=== PATIENT | male | born 1945 | race Caucasian/White ===

== ENCOUNTER 2019-09-10 22:36 | Inpatient (IN) ==
[2019-09-10] MEDS ORDERED: LASIX IV ONE (22:40)
[2019-09-10] MEDS ORDERED: CARDIZEM IV ONE (22:43)
--- NOTE | 2019-09-10 22:48 | PROVIDER DOCUMENTATION ---
HPI-Respiratory General - General Chief Complaint: Shortness of Breath Stated Complaint: sob Time Seen by Provider: 09/10/19 22:42 Source: patient Allergies/Adverse Reactions: Patient Allergies Allergy/AdvReac Type Severity Reaction Status Date / Time No Known Allergies Allergy Verified 09/10/19 23:10 Home Medications: Home Medication List Medication Instructions Recorded Confirmed Last Taken Type Allopurinol 300 mg PO DAILY 10/25/17 09/10/19 10/24/17 20:00 History Aspirin [Aspirin EC] 81 mg PO DAILY 10/25/17 09/10/19 10/24/17 20:00 History Digoxin 0.25 mg PO DAILY 10/25/17 09/10/19 10/24/17 20:00 History Diltiazem HCl [Cartia Xt] 240 mg PO DAILY 10/25/17 09/10/19 10/24/17 20:00 History Ramipril 10 mg PO DAILY 10/25/17 09/10/19 10/24/17 20:00 History Saxagliptin [Onglyza] 5 mg PO DAILY 10/25/17 09/10/19 10/24/17 20:00 History Triamterene/Hydrochlorothiazid 37.5 mg PO DAILY 10/25/17 09/10/19 10/24/17 20:00 History [Triamterene-Hctz 37.5-25 mg Tb] Warfarin [Coumadin] 5 mg PO DAILY 10/25/17 09/10/19 10/24/17 20:00 History Furosemide 1 tab PO DAILY 09/10/19 09/10/19 Unknown History Potassium Chloride 1 tab PO DAILY 09/10/19 09/10/19 Unknown History - History of Present Illness-Resp Nature of Presenting Problem: 74 yr old M, presenting with progressively worsening SOB over the past several hours; pt had been feeling poorly for the past several days, but over the course of today began to feel short of breath at rest; his reports he had been coughing in the days leading up to this, but tonight; had not coughed at all, and had appeared to have difficulty catching his breath; she also notes that he became profusely diaphoretic; this only worsened, and by the time EMS was called, the pt was saturating 86% on room air; he has no hx of pulmonary issues; does have some cardiac hx, mainly atrial fibrillation. Pt was placed on BiPAP. Review of Systems - Adult - REVIEW OF SYSTEMS - ADULT Constitutional: reports: see HPI Eyes: reports: no symptoms reported Ears, Nose, Mouth & Throat: reports: no symptoms reported Cardiovascular: reports: see HPI Respiratory: reports: see HPI Gastrointestinal: reports: no symptoms reported Genitourinary: reports: no symptoms reported Musculoskeletal: reports: no symptoms reported Integumentary: reports: no symptoms reported Neurological: reports: no symptoms reported Psychiatric: reports: no symptoms reported Past History - Adult - PAST MEDICAL HISTORY-ADULT Review of Records: reports: Nursing Assessment Review Cardiovascular: reports: A-Fib, HTN - PRIOR SURGERIES/PROCEDURES Surgical/Procedure History: reports: other (cath) - FAMILY HISTORY Family History: reviewed, not pertinent - SOCIAL HISTORY Living Situation: family Physical Exam-General - PHYSICAL EXAM-ADULT Initial Vital Signs Reviewed: Yes - CONSTITUTIONAL General Appearance: alert, mild distress - EYES Eyes: PERRL/EOMI - HEAD, EARS, NOSE, MOUTH & THROAT HENMT: normocephalic/atraumatic, moist mucous membranes - RESPIRATORY Respiratory: crackles, wheezing, other (poor inspiratory effort) - CARDIOVASCULAR Cardiovascular: tachycardia, irregularly irregular - GASTROINTESTINAL (ABDOMEN) Abdominal Exam: normal bowel sounds, non tender, soft - MUSCULOSKELETAL Extremity: pedal edema - SKIN Integumentary: normal color, normal turgor, warm/dry - NEUROLOGIC Neurologic: no motor/sensory deficits. negative: facial droop, focal weakness, motor weakness - PSYCHIATRIC Psych/Mental Status: normal mood/affect, oriented x 3 - HEART Score HEART Score: History: Moderately Suspicious HEART Score: ECG: Non-Specific Repolarization Disturbance/LBBB/PM HEART Score: Age: > or = 65 Years HEART Score: Risk Factors for Atherosclerotic Disease: > or = 3 Risk Factors or History of Atherosclerotic Disease HEART Score: Troponin: 1-3x Normal Limit Total HEART Score:: 7 Progress - PLAN OF CARE/RESULTS Progress/Plan/Lab Results: Vital Signs - 8 hr 09/10/19 23:02 Pulse Rate 140 H Respiratory Rate 24 Blood Pressure 92/69 O2 Sat by Pulse Oximetry 97 09/10/19 22:56 Influenza Screen - Final Nasopharyngeal Laboratory Results - last 24 hr 09/10/19 09/10/19 09/10/19 22:49 22:50 22:50 WBC 26.09 H RBC 4.18 L Hgb 13.7 L Hct 42.1 MCV 100.7 H MCH 32.8 H MCHC 32.5 L RDW Std Deviation 14.1 Plt Count 240 MPV 11.0 H Immature Gran % (Auto) 0.5 Neut % (Auto) 85.7 H Lymph % (Auto) 5.2 L Gates % (Auto) 8.3 Eos % (Auto) 0.1 Baso % (Auto) 0.2 Immature Gran # (Auto) 0.14 H Neut # (Auto) 22.33 H Lymph # (Auto) 1.36 Gates # (Auto) 2.17 H Eos # (Auto) 0.03 Baso # (Auto) 0.06 Specimen Type Sample Site pH pCO2 pO2 HCO3 Base Excess Oxyhemoglobin ABG O2 Sat (Calculated) ABG O2 Saturation ABG Carboxyhemoglobin ABG Methemoglobin Wes Test A-a O2 Difference Total Hemoglobin Lactate Blood Gas Modality FiO2 % Inspiratory BiPAP Expiratory BiPAP Sodium 130 L Potassium 4.8 Chloride 90 L Carbon Dioxide 26 Anion Gap 14 BUN 38 H Creatinine 2.0 H Estimated GFR/1.73 m2 33 BUN/Creatinine Ratio 19 Glucose 352 H POC Glucose 351 H Calculated Osmolality 284 Calcium 8.9 Total Bilirubin 0.59 AST 12 ALT 10 Alkaline Phosphatase 70 Creatine Kinase 130 Troponin T High Sens Evk-B-Sjwqjikdela Pept Total Protein 7.3 Albumin 3.5 Globulin 3.8 Albumin/Globulin Ratio 0.9 Plasma Lactate Acetone Level 09/10/19 09/10/19 09/10/19 22:50 22:50 22:50 WBC RBC Hgb Hct MCV MCH MCHC RDW Std Deviation Plt Count MPV Immature Gran % (Auto) Neut % (Auto) Lymph % (Auto) Gates % (Auto) Eos % (Auto) Baso % (Auto) Immature Gran # (Auto) Neut # (Auto) Lymph # (Auto) Gates # (Auto) Eos # (Auto) Baso # (Auto) Specimen Type Sample Site pH pCO2 pO2 HCO3 Base Excess Oxyhemoglobin ABG O2 Sat (Calculated) ABG O2 Saturation ABG Carboxyhemoglobin ABG Methemoglobin Wes Test A-a O2 Difference Total Hemoglobin Lactate Blood Gas Modality FiO2 % Inspiratory BiPAP Expiratory BiPAP Sodium Potassium Chloride Carbon Dioxide Anion Gap BUN Creatinine Estimated GFR/1.73 m2 BUN/Creatinine Ratio Glucose POC Glucose Calculated Osmolality Calcium Total Bilirubin AST ALT Alkaline Phosphatase Creatine Kinase Troponin T High Sens 30 H* Eef-R-Utuxsgtmsjw Pept 392 Total Protein Albumin Globulin Albumin/Globulin Ratio Plasma Lactate Acetone Level NEGATIVE 09/10/19 09/10/19 22:50 23:06 WBC RBC Hgb Hct MCV MCH MCHC RDW Std Deviation Plt Count MPV Immature Gran % (Auto) Neut % (Auto) Lymph % (Auto) Gates % (Auto) Eos % (Auto) Baso % (Auto) Immature Gran # (Auto) Neut # (Auto) Lymph # (Auto) Gates # (Auto) Eos # (Auto) Baso # (Auto) Specimen Type ARTERIAL Sample Site R RADIAL pH 7.25 L pCO2 68 H* pO2 271 H HCO3 25.5 Base Excess 0.7 Oxyhemoglobin 97.3 ABG O2 Sat (Calculated) 19.9 ABG O2 Saturation 100.3 H ABG Carboxyhemoglobin 2.00 ABG Methemoglobin 0.9 Wes Test YES A-a O2 Difference 357.0 Total Hemoglobin 14.1 Lactate 1.60 Blood Gas Modality BI PAP FiO2 % 100.0 Inspiratory BiPAP 16.0 Expiratory BiPAP 5.0 Sodium Potassium Chloride Carbon Dioxide Anion Gap BUN Creatinine Estimated GFR/1.73 m2 BUN/Creatinine Ratio Glucose POC Glucose Calculated Osmolality Calcium Total Bilirubin AST ALT Alkaline Phosphatase Creatine Kinase Troponin T High Sens Jqp-[id number]-Dnvyponkhjd Pept Total Protein Albumin Globulin Albumin/Globulin Ratio Plasma Lactate 2.7 H Acetone Level Orders Category Date Time Status CHEST-1 VIEW [RAD] Stat Exams 09/10/19 23:05 Taken A1C HGB W EST AVG GLUCOSE [CHEM] Routine Lab 09/12/19 06:00 Ordered ABG [RESP] Routine Lab 09/10/19 23:06 Completed ACETONE SERUM [CHEM] Stat Lab 09/10/19 22:50 Completed CBC WITH ELECTRONIC DIFF [HEME] Stat Lab 09/10/19 22:50 Completed CK PROFILE [SP CHEM] Stat Lab 09/10/19 22:50 Completed CMP [COMPREHENSIVE METABOLIC PANEL] [CHEM] Stat Lab 09/10/19 22:50 Completed DIGOXIN [TDM] Stat Lab 09/11/19 00:17 Ordered INFLUENZA SCREEN A/B Stat Lab 09/10/19 22:56 Completed LACTATE, PLASMA [CHEM] Stat Lab 09/10/19 22:50 Completed PRO B-NATRIURETIC PEPTIDE Stat Lab 09/10/19 22:50 Completed PROTIME WITH INR [COAG] DAILY Lab 09/11/19 06:00 Ordered PROTIME WITH INR [COAG] DAILY Lab 09/12/19 06:00 Ordered PROTIME WITH INR [COAG] Stat Lab 09/11/19 00:18 Ordered TROPONIN T HIGH SENSITIVITY Stat Lab 09/10/19 22:50 Completed TSH Stat Lab 09/11/19 00:17 Ordered URINALYSIS W/POSS RFLX CULT [URINALYSIS] Stat Lab 09/10/19 23:34 Uncollected 0.9% Sodium Chloride Inj [Ns] 1,000 ml Med 09/10/19 23:35 Discontinued IV 999 mls/hr Albuterol 2.5MG/Ipratrop 0.5MG [Duoneb (A & A)] Med 09/11/19 00:14 Discontinued 3 ml INH NOW ONE Allopurinol [Zyloprim] Med 09/11/19 09:00 Ordered 300 mg PO DAILY Aspirin Med 09/10/19 23:42 Discontinued 325 mg PO NOW ONE Aspirin EC Med 09/11/19 09:00 Ordered 81 mg PO DAILY Azithromycin 500 mg/Ns [Zithromax 500 mg/Ns] Med 09/11/19 00:15 Active 500 mg in 250 ml IV NOW CefTRIAXONE [Rocephin] 1 gm Med 09/10/19 23:35 Discontinued 0.9% Sodium Chloride Inj [Ns] 50 ml IV NOW Digoxin Med 09/11/19 09:00 Ordered 0.25 mg PO DAILY Diltiazem C.d. [Cardizem Cd] Med 09/11/19 09:00 Ordered 240 mg PO DAILY Diltiazem [Cardizem] Med 09/10/19 22:43 Discontinued 25 mg IV NOW ONE Diltiazem [Cardizem] Med 09/11/19 00:15 Discontinued 30 mg PO NOW ONE Furosemide [Lasix] Med 09/10/19 22:40 Discontinued 40 mg IV NOW ONE Potassium Chloride Med 09/11/19 09:00 Ordered 1 tab PO DAILY Warfarin [Coumadin] Med 09/11/19 09:00 Ordered 5 mg PO DAILY Aerosol Treatments Routine Oth 09/11/19 00:14 Active Aerosol Treatments Stat Oth 09/11/19 00:14 Active BIPAP Stat Oth 09/10/19 23:06 Active EKG [EKG] Stat Ther 09/11/19 00:05 Ordered Pt's lab eval revealed pH 7.25, CO2 of 68 on BiPap, elevated WBC of 25, Na 130, Lactate of 2.7; Dr. Mon kindly accepts the pt for additional management in patient. Pt and family made aware of the plan. Result Diagrams: 09/10/19 22:50 09/10/19 22:50 - XRAY 1 XRAY Study: Chest Impression: See EMR Report XRAY Interpretation: viewed by me; signs of pulm edema, may be underlying pneumonia - CONSULTS/PCP/HOSPITALIST Notification #1 *Consult/PCP/Hospitalist*: Dr. Mon Time Discussed: 00:00 Consult Disposition: Admit Departure - Departure Date of Disposition Decision: 09/10/19 Time of Disposition Decision: 00:00 DIAGNOSIS: Atrial fibrillation with rapid ventricular response Dyspnea Qualifiers: Dyspnea type: acute respiratory distress Qualified Code(s): R06.03 - Acute respiratory distress Pneumonia Qualifiers: Pneumonia type: due to unspecified organism Laterality: bilateral Lung location: lower lobe of lung Qualified Code(s): J18.1 - Lobar pneumonia, unspecified organism Disposition: ADMITTED INPATIENT 09 Certified Medical Emergency: Emergent Condition: Fair Referrals and Follow-Ups: Gris Jenkins MD [Primary Care Provider] - - Critical Care Note This patient required my direct & personal management of CC.: Yes Total Time (mins): 35 Critical Care Statement: This patient required my direct personal management to treat or rule out processes, the absence of which, could potentiallly result in sudden, clinically significant life or limb threatening deterioration. Attestation - Physician/ FAISAL Attestation Patient care was provided by Advanced Practice Provider:: No The physician spent face to face time with patient:: Yes Advanced Practice Provider documentation review:: Supervising physician onsite and consulted in the evaluation and care of this patient. The physician did have a face to face encounter with the patient.
[2019-09-10 23:12] LABS: BASO# 0.06 X1000 (0.0-0.2); BASO% 0.2 % (0.0-0.8); EOS# 0.03 X1000 (0.0-0.7); EOS% 0.1 % (0.0-10.0); HEMATOCRIT 42.1 % (42.0-52.0); HEMOGLOBIN 13.7 g/dL (14.0-18.0); IMM GRAN# 0.14 X1000 (0.0-0.04); IMM GRAN% 0.5 % (0.0-0.5); LYMPH# 1.36 X1000 (1.2-3.4); LYMPH% 5.2 % (20.5-51.1); MCH 32.8 PG (27-31); MCHC 32.5 g/dL (33-37); MCV 100.7 FL (81-99); MONO# 2.17 X1000 (0.11-0.59); MONO% 8.3 % (1.7-9.3); NEUT# 22.33 X1000 (1.4-6.5); NEUT% 85.7 % (42.2-75.2); PLT 240 X1000 (130-400); RBC 4.18 XMIL (4.7-6.1); RDW 14.1 % (11.5-14.5); WBC 26.09 X1000 (4.8-10.8)
[2019-09-10 23:21] LABS: ALB/GLOB RATIO 0.9; ALBUMIN 3.5 g/dL (3.5-5.0); CALCIUM 8.9 mg/dL (8.8-10.2); POTASSIUM 4.8 mmol/L (3.5-5.1); TOTAL BILIRUBIN 0.59 mg/dL (0.20-1.00); TOTAL PROTEIN 7.3 g/dL (6.3-8.3)
[2019-09-10] MEDS ORDERED: NS 1,000 ML IV ONE (23:35)
[2019-09-10] MEDS ORDERED: ROCEPHIN 1 GM in NS 50 ML IV ONE (23:35)
[2019-09-10] MEDS ORDERED: ASPIRIN PO ONE (23:42)
[2019-09-10 23:51] LABS: ALLEN TEST YES; BE 0.7 mmoll (-3.0-3.0); BLOOD TYPE ARTERIAL; HCO3-(ACT) 25.5 mmoll (20.0-26.0); METHB 0.9 % (0.0-1.5); O2(CT) 19.9 mL/dL (15.0-23.0); O2HB 97.3 % (95.0-99.0); PO2(98.6) 271 mmHg (60-100); SAMPLE BLOOD; SAO2 100.3 % (95.0-100.0); THB 14.1 g/dL (11.5-17.4); pH(98.6) 7.25 (7.35-7.45)
[2019-09-10 23:52] LABS: MODALITY BI PAP
[2019-09-10 23:53] LABS: PCO2(98.6) 68 mmHg (35-45)
[2019-09-11] MEDS ORDERED: DUONEB (A & A) INH ONE (00:14)
[2019-09-11] MEDS ORDERED: ZITHROMAX 500 MG/NS 500 MG/250 ML IVPB IV ONE (00:15)
[2019-09-11] MEDS ORDERED: CARDIZEM PO ONE (00:15)
--- NOTE | 2019-09-11 00:21 | ED EKG INTERP ---
This chart was entered by Lay Mendez Scribe, acting as scribe for Kristopher Triplett MD. EKG Interpretation - EKG Time of EKG reading by physician:: 22:43 EKG Read and Signed by:: Kristopher Triplett EKG Interpretation (*Must complete 3 of following elements*): Abnormal Rate: 118 Rhythm: Atrial fibrillation with rapid ventricular response ST Wave: non-specific ST changes (ST & T wave abnormality, consider lateral ischemia) Comments: Septal in farct, age undetermined Attestation - Physician/ FAISAL Attestation Patient care was provided by Advanced Practice Provider:: No The physician spent face to face time with patient:: Yes Advanced Practice Provider documentation review:: Supervising physician onsite and consulted in the evaluation and care of this patient. The physician did have a face to face encounter with the patient. This chart was documented by the indicated scribe, (Lay Mendez Scribe) and accurately reflects the services I performed and decisions made by me, Kristopher Triplett MD, as attested by the provider's signature.
[2019-09-11] MEDS ORDERED: HUMALOG SUBQ ONE (00:29)
[2019-09-11] MEDS ORDERED: LANTUS INSULIN SUBQ ONE (00:29)
[2019-09-11] MEDS ORDERED: NS 500 ML IV ONE (00:31)
[2019-09-11 02:15] LABS: INR 1.94; PROTIME 22.6 Seconds (11.0-16.0)
--- NOTE | 2019-09-11 02:26 | HISTORY AND PHYSICAL ---
PRIMARY CARE PROVIDER: Gris Jenkins MD. REASON FOR ADMISSION: Two to 3 days history of dry cough, chest tightness, and increased shortness of breath. HISTORY OF PRESENT ILLNESS: Mr. Norman Stone is a 74-year-old male with a past medical history of atrial fibrillation status post aortic valve repair. She also has a history of hypertension, type 2 diabetes, gout. He has a longstanding history of chronic dyspnea on exertion, which has worsened over the last couple of days. He also has a chronic history of orthopnea, which he states has not worsened nor has he experienced any PND. He has been coughing for the last 2 days, which is dry, may have increased shortness of breath even at rest. No overt fever or chills, but states a few days prior to the onset of these symptoms was exposed to a daughter who had a "bronchitis." He has chronic lower extremity swelling, but says its has not worsened. No extremity redness or pain. No palpitations. His has been trying to get him to see his family doctor but the patient has steadfastly refused. Today he went to the bathroom to defecate, but could not get off the toilet seat because he was profoundly short of breath, diaphoretic and very weak. He denied any loss of consciousness though his family said during this period he was very confused. They called the EMS and they brought him into the hospital. His heart rate in the hospital was in the 140s, atrial fibrillation with RVR. He was given 25 mg of Cardizem which has since brought his heart rate down to the low 100s. Currently the patient says he feels a little bit better after being put on BiPAP and receiving Cardizem. REVIEW OF SYSTEMS: Notable for urgency, hesitancy and nocturia, which has not worsened. No hematuria. No bleeding from any orifice. No focal neurological complaints. No additional GI complaints. ALLERGIES: None. HOME MEDICATIONS: He is on allopurinol 300 mg daily, aspirin 81 mg a daily, Cardizem 240 mg daily, warfarin 5 mg daily, digoxin 0.25 mg daily, furosemide 40 mg daily, Onglyza 5 mg daily, potassium 10 mEq daily, ramipril 10 mg daily, Dyazide 37.5/25 daily. FAMILY HISTORY: Both parents had heart disease. SOCIAL HISTORY: He uses smokeless tobacco. He drinks a beer daily. Not . No illicit drug use. PAST MEDICAL HISTORY: Includes gout. The rest of past medical history see above. LABORATORY DATA: White count is 26,000, hemoglobin and hematocrit 13 and 42, platelets 240,000 with an MCV of 101, 85% neutrophils. Sodium 130, BUN is 20, creatinine 2.0, glucose 352, troponin is 30, lactate 2.7. PH 7.25, pCO2 of 68, PO2 of 271. Is on FiO2 of 100% on BiPAP 16 and 5 I believe. IMAGING: Chest film reviewed by me shows poor inspiratory effort, but there appears to be a left lower lobe infiltrate with increased vascular markings, and a flu swab was negative. EKG shows atrial fibrillation with RVR with nonspecific ST-wave changes. Heart rate is 118. PHYSICAL EXAMINATION: VITAL SIGNS: Blood pressure is 92/69, respiratory rate is 24, pulse rate was 140. GENERAL: He is an obese elderly white male who is alert and oriented to person and time. Normal mood and affect. HEENT: Head is normocephalic, atraumatic. Eyes, CARLEE, EOMI. He is anicteric not pale. ENT exam is limited due to the fact he is on a BiPAP. He has a BiPAP mask on. He has mild central cyanosis noted. NECK: Supple with noticeable JVD or hepatojugular reflux. No bruit. No thyromegaly. CHEST: Coarse wheezes and crepitations diffusely. Decreased air entry in both lung lin. CARDIOVASCULAR: First and second heart sounds heard. No gallops or rubs. Rhythm is irregular. ABDOMEN: Protuberant, soft, nontender. No organomegaly. Bowel sounds hypoactive. RECTAL: Deferred at this time. EXTREMITIES: The patient has trace to 1+ pitting edema in both lower extremities. Pulses distally have good volume, regular. Extremities are warm to touch. No clubbing or peripheral cyanosis. NEUROLOGICAL: No gross focal deficits. No asterixis or myoclonus. SKIN: Intact with no breakdown, lesion, or erythema. MUSCULOSKELETAL: Grossly normal. ASSESSMENT: 1. Probable left lower lobe pneumonia. 2. Acute CHF, probably acute diastolic heart failure. 3. Atrial fibrillation with RVR. 4. Acute respiratory failure with hypercapnia secondary to #1 and 2. 5. Probable COPD. 6. Gout. 7. Type 2 diabetes uncontrolled. 8. Hypertensive heart and kidney disease. 9. CKD stage 3. PLAN: The patient does not appear to be clinically in sepsis at this point in time. His picture is more consistent with CHF. We will diurese the patient and start the patient on breathing treatments. Heart rate, i.e., atrial fibrillation RVR probably ris elated to hypoxia, and his rate will be managed with Cardizem and digoxin. We will get digoxin level before considering whether to add on any more extra digoxin especially since the patient has compromised renal function. We will monitor renal function closely and hydrate if needed. The patient will be started on antibiotic coverage for community-acquired pneumonia, i.e. Rocephin and Zithromax. My suspicion is that the patient was exposed to a viral illness and this triggered this pneumonia and CHF noted. We will discontinue allopurinol for now since the patient's renal function has been compromised; however, long-term going forward we will need to discontinue Dyazide as this can trigger gout in this patient. Blood sugars will be managed with Lantus and sliding scale, A1c has been ordered also. The patient will need to be evaluated for home O2 and sleep apnea prior to discharge. The patient does have microcytic anemia and workup has been ordered. Protime and INR was not done, this was ordered and will need to be adjusted accordingly. The patient says he has a bioprosthetic valve. I think we will need to maintain because of the risk of a stroke in this patient, may need to maintain at least INR between 2.5 and 3 for now. cc: MD Gris Dietz MD
[2019-09-11] MEDS: DUONEB (A & A) INH SCH ×4 (03:47→21:21)
[2019-09-11 04:46] LABS: ALLEN TEST YES; BE -0.9 mmoll (-3.0-3.0); BLOOD TYPE ARTERIAL; HCO3-(ACT) 24.1 mmoll (20.0-26.0); METHB 1.2 % (0.0-1.5); O2(CT) 16.7 mL/dL (15.0-23.0); O2HB 92.1 % (95.0-99.0); PO2(98.6) 64 mmHg (60-100); SAMPLE BLOOD; SAO2 94.8 % (95.0-100.0); THB 12.9 g/dL (11.5-17.4); pH(98.6) 7.28 (7.35-7.45)
[2019-09-11 04:48] LABS: MODALITY BI PAP; PCO2(98.6) 57 mmHg (35-45)
--- NOTE | 2019-09-11 05:49 | EKG Report ---
Test Performed on : 09/10/2019 10:42:16 PM Test Reason : sob Blood Pressure : / mmHG Vent. Rate : 118 BPM Atrial Rate : 111 BPM P-R Int : 000 ms QRS Dur : 084 ms QT Int : 328 ms P-R-T Axes : 000 000 127 degrees QTc Int : 459 ms Atrial fibrillation. with rapid ventricular response. Septal infarct (cited on or before 22-OCT-2017) ST & T wave abnormality, consider lateral ischemia Abnormal ECG When compared with ECG of 22-OCT-2017 12:33, T wave inversion no longer evident in Inferior leads T wave inversion no longer evident in Anterior leads Unconfirmed Result
[2019-09-11 06:38] LABS: INR 2.36; PROTIME 26.4 Seconds (11.0-16.0)
--- NOTE | 2019-09-11 07:13 | Diag Imaging Result Doc PS360 ---
EXAM: CHEST-1 VIEW 09/10/2019 HISTORY: SOB TECHNIQUE: AP portable at 2318 COMMENT: There is less apparent pleural fluid on the left than on 12/02/2018. There is pleural thickening and scarring in the left lower lung field similar in appearance to the previous study. The right lung is not as well-expanded as on the previous examination and there is some questionable basilar opacity. 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 Questionable right lower lobe atelectasis versus pneumonia. Electronically signed by Miah Urena 09/11/2019 7:11 AM
[2019-09-11] MEDS: HUMALOG SUBQ SCH ×4 (07:37→20:32)
[2019-09-11] MEDS ORDERED: LANOXIN PO SCH (09:00)
[2019-09-11] MEDS ORDERED: ZYLOPRIM PO SCH (09:00)
[2019-09-11] MEDS ORDERED: FLOMAX PO ONE (09:06)
[2019-09-11] MEDS: ROCEPHIN 1 GM in NS 50 ML IV SCH (09:31)
[2019-09-11] MEDS: ASPIRIN EC PO SCH (09:31)
[2019-09-11 09:32] LABS: URINE SOURCE CATH
[2019-09-11] MEDS: LASIX IV SCH (09:32)
[2019-09-11] MEDS: CARDIZEM CD PO SCH (09:32)
[2019-09-11] MEDS: LANTUS INSULIN SUBQ SCH (09:33)
[2019-09-11] MEDS: KLOR-CON PO SCH (09:33)
[2019-09-11 09:34] LABS: BILIRUBIN URINE NEGATIVE (NEGATIVE); BLOOD URINE TRACE (NEGATIVE); COLOR YELLOW; GLUCOSE URINE TRACE mg/dL (NEGATIVE); KETONE URINE NEGATIVE (NEGATIVE); LEUKOCYTES URINE NEGATIVE (NEGATIVE); NITRITE URINE NEGATIVE (NEGATIVE); PH URINE 5.5; PROTEIN URINE 100 mg/dL (NEGATIVE); SP GRAVITY URINE 1.021; TURBIDITY URINE HAZY (CLEAR); UROBILINOGEN URINE 2 mg/dL (NORMAL)
[2019-09-11 09:35] LABS: UR EPITHELIAL CELLS <10 /HPF (<10); URINE BACTERIA NEGATIVE /HPF; URINE RBC <10 /HPF (<10); URINE WBC <10 /HPF (<10)
[2019-09-11] MEDS: LANOXIN PO SCH (09:54)
--- NOTE | 2019-09-11 15:08 | Diag Imaging Result Doc PS360 ---
CHEST-2 VIEWS - 09/11/2019 INDICATION: CHF PNA COMPARISON: 09/10/2019 FINDINGS: Stable cardiomegaly. Stable valve replacement. There is some worsening infiltrate throughout the left lung base. Stable pleural-based opacity on the left. IMPRESSION: Worsening indeterminate infiltrate throughout the left lung base. Electronically signed by Quincy Villa 09/11/2019 3:06 PM
[2019-09-11] MEDS: NS 1,000 ML IV SCH (16:43)
--- NOTE | 2019-09-11 17:44 | PROGRESS NOTE ---
DATE: 09/11/2019 SUBJECTIVE: Mr. Verdugo is a patient of Dr. Gris Boyer. He had a 3-day history of dry cough, chest tightness, increased shortness of breath. This is a 74-year-old white male with a past medical history of atrial fibrillation, status post aortic valve repair, had a history of hypertension, type 2 diabetes mellitus, gout, and a longstanding history of chronic dyspnea on exertion, which has worsened over the last couple of days. Also, had a chronic history of orthopnea which he states has not worsened nor has he experienced any paroxysmal nocturnal dyspnea, but he has been coughing for 2 days, shortness of breath even at rest. Admitted with probable left lower lobe pneumonia and acute congestive heart failure, probably acute diastolic heart failure, underlying atrial fibrillation with rapid ventricular rate. He has some hypercapnia and probable COPD and hypertensive heart with chronic kidney disease stage 3. OBJECTIVE: Vital Signs: His exam, temperature 98.4, remains afebrile, pulse 67, respirations 25, blood pressure 101/44. HEENT: Pupils are equal and round. Lungs: Clear in all lung lin, anterolateral. Cardiovascular: Regular rhythm and rate without murmur or S3. Abdomen: Soft. Skin: Warm and dry. HOSPITAL COURSE/DIAGNOSTIC DATA: Note he had decreased urine output through the night. They did a bladder scan found 300 mL. Put a Villanueva catheter in and he really has not had much urine output at all, so I am going to start him back on some fluids. His chest x-ray shows pleural and parenchymal fibrosis, questionable right lower lobe atelectasis versus pneumonia. Did not see pulmonary venous hypertension, so I am going to start him back on some fluids. His white count was elevated. His electrolytes on presentation, creatinine was 2.0. Looking back, we had an echocardiogram done on 05/04/2017, and it at that time had normal left ventricular function. Ejection fraction 70%. Right ventricle mildly enlarged. Left atrium appeared mildly dilated and aortic valve densely calcified, showed restricted opening, maximal gradient across the valve was 104, and I think he has had valve replacement since that time. Checking his creatinine and looking back, he has had a creatinine back in June 2019 of 1.3. I think he is a little bit dry. We will give him some fluids back gently with normal saline. We did put a Villanueva catheter in. His heart rate appears controlled. cc: Wes Sheikh MD
[2019-09-11] MEDS: FLOMAX PO SCH (20:31)
[2019-09-11] MEDS ORDERED: COUMADIN PO SCH (21:00)
[2019-09-11] MEDS: ZITHROMAX 500 MG/NS 500 MG/250 ML IVPB IV SCH (23:37)
[2019-09-12] MEDS: DUONEB (A & A) INH SCH ×4 (03:39→21:12)
[2019-09-12] MEDS: NS 1,000 ML IV SCH ×3 (04:41→15:53)
[2019-09-12] MEDS: HUMALOG SUBQ SCH ×4 (06:12→20:06)
[2019-09-12 06:52] LABS: INR 3.43; PROTIME 35.6 Seconds (11.0-16.0)
[2019-09-12 07:19] LABS: MAGNESIUM 1.8 mg/dL (1.5-2.7); PHOSPHORUS 5.3 mg/dL (2.7-4.5)
[2019-09-12 07:25] LABS: CALCIUM 7.8 mg/dL (8.8-10.2); CREATININE 4.2 mg/dL (0.7-1.2); POTASSIUM 5.3 mmol/L (3.5-5.1)
[2019-09-12] MEDS: ASPIRIN EC PO SCH (08:28)
[2019-09-12] MEDS: LASIX IV SCH (08:28)
[2019-09-12] MEDS: LANOXIN PO SCH (08:29)
[2019-09-12] MEDS: FLOMAX PO SCH ×2 (08:29→21:19)
[2019-09-12] MEDS: CARDIZEM CD PO SCH (08:29)
[2019-09-12] MEDS: ROCEPHIN 1 GM in NS 50 ML IV SCH (08:29)
[2019-09-12] MEDS: LANTUS INSULIN SUBQ SCH (08:30)
[2019-09-12] MEDS: KLOR-CON PO SCH (09:24)
[2019-09-12] MEDS ORDERED: NS 500 ML IV ONE (13:06)
--- NOTE | 2019-09-12 13:28 | PROGRESS NOTE ---
DATE: 09/12/2019 SUBJECTIVE: Mr. Verdugo is breathing better. He is doing better. His appetite is not much. He does feel like he is trying to have a bowel movement. He is awake. We really found nothing on the bladder and bladder scan so we decided to just take the catheter out. We had put a catheter in yesterday evening. Did not get much output. Nothing on the bladder scan. We took it out again. We tried to put another one in and still no output so we will discontinue the Villanueva catheter. OBJECTIVE: On his examination, temperature 98.5 degrees, pulse 75, respirations 20, blood pressure 119/45. Pupils are equal and round. Lungs are clear in all lung lin. Cardiovascular Examination: Regular rhythm and rate without murmur or S3. Abdomen is soft and nondistended. Skin is warm and dry. Urine output was about 200 mL. His chest x-ray from yesterday, worsening intermediate infiltrate throughout the left lung base. ASSESSMENT AND PLAN: 1. Probable left lower lobe pneumonia. Continue present antibiotics, supplementary oxygen, and bronchodilators. 2. Acute congestive heart failure, pulmonary venous hypertension. Suspect it is diastolic. Looking back at echocardiogram which he had in November of 2018, left ventricular function was excellent with an estimated ejection fraction of 65-70%. Both atria were mildly enlarged. Mitral valve showed some thickening. The pulse wave Doppler of the mitral inflow showed single filling wave consistent with atrial fibrillation and so suspect mainly diastolic dysfunction. Overall, he is better. 3. He does have benign prostatic hypertrophy. We will take out his catheter and we will see. REVIEW OF ORDERS: Looking over his orders, he is on DuoNebs inhalation every 6 hours, aspirin 81 mg a day, Lanoxin 250 mcg p.o. daily, Cardizem 240 mg daily, Lasix 40 mg IV daily, normal saline at 85 mL an hour, ceftriaxone 1 g IV q.24 hours, Flomax 0.4 mg b.i.d., Coumadin 5 mg at bedtime, azithromycin 500 mg IV q.24 hours, and getting sliding scale insulin. REVIEW OF HIS LABORATORY DATA: Sodium 132, potassium 5.3, chloride 97, BUN 54, creatinine 4.2. Note, his creatinine has bumped up from 2.0 so I think we have to increase his fluids, so he is getting fluids now at 85 mL an hour. I am going to give him a 400 mL IV fluid bolus as well and I will go up to 100 mL an hour. cc: Wes Sheikh MD
[2019-09-13] MEDS: NS 1,000 ML IV SCH ×3 (00:30→08:14)
[2019-09-13] MEDS: ZITHROMAX 500 MG/NS 500 MG/250 ML IVPB IV SCH (00:37)
[2019-09-13] MEDS: DUONEB (A & A) INH SCH ×4 (03:26→22:59)
[2019-09-13 06:43] LABS: CALCIUM 7.5 mg/dL (8.8-10.2); CREATININE 3.2 mg/dL (0.7-1.2); POTASSIUM 5.4 mmol/L (3.5-5.1)
[2019-09-13] MEDS: HUMALOG SUBQ SCH ×4 (08:13→21:53)
[2019-09-13] MEDS: LASIX IV SCH (08:14)
[2019-09-13] MEDS: CARDIZEM CD PO SCH (08:15)
[2019-09-13] MEDS: LANOXIN PO SCH (08:15)
[2019-09-13] MEDS: ROCEPHIN 1 GM in NS 50 ML IV SCH (08:15)
[2019-09-13] MEDS: ASPIRIN EC PO SCH (08:15)
[2019-09-13] MEDS: FLOMAX PO SCH ×2 (08:15→20:36)
[2019-09-13] MEDS: LANTUS INSULIN SUBQ SCH (08:16)
[2019-09-13 08:49] LABS: BASO# 0.02 X1000 (0.0-0.2); BASO% 0.1 % (0.0-0.8); EOS# 0.01 X1000 (0.0-0.7); EOS% 0.1 % (0.0-10.0); HEMATOCRIT 33.3 % (42.0-52.0); HEMOGLOBIN 10.2 g/dL (14.0-18.0); IMM GRAN# 0.11 X1000 (0.0-0.04); IMM GRAN% 0.7 % (0.0-0.5); LYMPH# 1.11 X1000 (1.2-3.4); LYMPH% 7.3 % (20.5-51.1); MCH 32.2 PG (27-31); MCHC 30.6 g/dL (33-37); MONO% 9.2 % (1.7-9.3); MPV 10.8 FL (7.4-10.4); NEUT# 12.63 X1000 (1.4-6.5); NEUT% 82.6 % (42.2-75.2); PLT 208 X1000 (130-400); RBC 3.17 XMIL (4.7-6.1); RDW 14.8 % (11.5-14.5); WBC 15.28 X1000 (4.8-10.8)
[2019-09-13 09:10] LABS: INR 3.45; PROTIME 35.8 Seconds (11.0-16.0)
[2019-09-13] MEDS: KLOR-CON PO SCH (09:15)
--- NOTE | 2019-09-13 13:02 | Diag Imaging Result Doc PS360 ---
CHEST-PORTABLE - 09/13/2019 INDICATION: pneumonia COMPARISON: 09/11/2019 FINDINGS: There is a moderate size, worsening left pleural effusion. Stable cardiomegaly and pulmonary vascular congestion. There is worsening interstitial pulmonary edema bilaterally. IMPRESSION: Significant worsening from prior. Electronically signed by Quincy Villa 09/13/2019 1:02 PM
--- NOTE | 2019-09-13 13:06 | PROGRESS NOTE ---
DATE: 09/13/2019 SUBJECTIVE: A 74-year-old who is awake and alert. He is on 35% Ventimask which he is tolerating well as long as he keeps the mask on. States his breathing is doing well. His was there, would like to get him up in a chair. PHYSICAL EXAMINATION: Vital signs: Today remains afebrile, temperature 98.3 degrees, pulse 96, respirations 20, blood pressure 149/64. HEENT: Pupils are equal and round. Lungs: Clear in all lung lin. Cardiovascular: Regular rhythm and rate without murmur or S3. Abdomen: Soft. Skin: Warm and dry. Urine output: 5400 mL. ASSESSMENT AND PLAN: 1. Probable left lower lobe pneumonia and continue present antibiotics, supplementary O2, bronchodilators. Seems to be making clinical improvement. 2. Acute congestive heart failure, pulmonary venous hypertension, suspect diastolic dysfunction. Looking back at his echocardiogram, he has good systolic function and evidence of diastolic dysfunction. 3. Benign prostatic hypertrophy. 4. He appears to have prerenal azotemia. His creatinine has come down with volume from 4 to 3.2, which is encouraging. Sodium 132, potassium 5.4, chloride 100, BUN 63, creatinine 3.2, so we will try and get him up and get him in a chair. 5. Diabetes mellitus type 2. His sugars appear well controlled. 6. He has no catheter in. I have him on high-dose Flomax at this point, 0.4 mg b.i.d. His Coumadin is at 5 mg and his ProTime is 35. I will decrease his Coumadin down to 4 mg at bedtime. cc: Wes Sheikh MD
[2019-09-14] MEDS: ZITHROMAX 500 MG/NS 500 MG/250 ML IVPB IV SCH (00:14)
[2019-09-14] MEDS: NS 1,000 ML IV SCH ×3 (00:15→12:27)
[2019-09-14] MEDS: DUONEB (A & A) INH SCH ×4 (04:05→22:07)
[2019-09-14] MEDS: HUMALOG SUBQ SCH ×4 (06:39→20:13)
[2019-09-14 06:54] LABS: INR 3.65; PROTIME 37.5 Seconds (11.0-16.0)
[2019-09-14 07:20] LABS: CALCIUM 8.2 mg/dL (8.8-10.2); CREATININE 2.1 mg/dL (0.7-1.2); POTASSIUM 5.6 mmol/L (3.5-5.1)
[2019-09-14] MEDS: ASPIRIN EC PO SCH (09:38)
[2019-09-14] MEDS: ROCEPHIN 1 GM in NS 50 ML IV SCH (09:38)
[2019-09-14] MEDS: LASIX IV SCH (09:38)
[2019-09-14] MEDS: CARDIZEM CD PO SCH (09:38)
[2019-09-14] MEDS: LANOXIN PO SCH (09:38)
[2019-09-14] MEDS: FLOMAX PO SCH ×2 (09:38→20:13)
[2019-09-14] MEDS: LANTUS INSULIN SUBQ SCH (09:38)
[2019-09-14] MEDS: KLOR-CON PO SCH (09:41)
[2019-09-14] MEDS ORDERED: LASIX IV ONE ×2 (12:57→23:28)
--- NOTE | 2019-09-14 13:08 | PROVIDER PROGRESS NOTE ---
Progress Note Pulmonary: Full dictation to follow. Reviewed EMR, H&P, labs and images, meds. Examined. Discussed with Dr. Sheikh and RN, Rosalina. Respiratory failure is compensated with Bipap CHF Pneumonia Improving ARF AV repair on anticoagulation Afib P DC IVF Diuresis check ABG and Probnp Continue antibiotics and current RX. Evaluation time 38 minute
--- NOTE | 2019-09-14 14:57 | PROVIDER PROGRESS NOTE ---
Progress Note Patient has been seen and examined. A full dictation to follow.
--- NOTE | 2019-09-14 16:40 | PROGRESS NOTE ---
DATE: 09/14/2019 SUBJECTIVE: Mr. Verdugo still feels pretty weak. The family is concerned that he has some confusion at times. His stools are loose. They would like to get a electronic drafter, a automotive production worker, and collection coordinator involved. I think his renal function is improving. Chest x-ray did show significant worsening. There is moderate sized worsening left pleural effusion. Stable cardiomegaly and pulmonary vascular congestion, worsening interstitial pulmonary edema, bilateral. OBJECTIVE: General: The patient was sitting up. He is talking and answering questions. Vital Signs: Temperature 97.6 degrees, pulse 89, respirations 20, blood pressure 131/53. HEENT: Pupils are equal and round. Lungs: Clear in all lung lin. Cardiovascular: Regular rhythm rate without murmur or S3. LABORATORY DATA: Urine output 4900 mL. ASSESSMENT AND PLAN: Respiratory failure, compensated with BiPAP, congestive heart failure, pneumonia, improving acute renal failure, arteriovenous repair on anticoagulation, and history of atrial fibrillation. Continue present orders. I will turn down his fluid and trying to avoid putting another Villanueva catheter in. He is on digoxin 250 mcg p.o. daily, Cardizem CD 240 mg a day, insulin glargine 15 units subcutaneous daily, ceftriaxone 1 g q.24 hours, Flomax 0.4 mg b.i.d., azithromycin 500 mg IV q.24 hours. Lasix 100 mg IV,got 1 dose this afternoon. Pro time was 37. We are holding the Coumadin, and he is not getting Coumadin right now. Blood sugars 207, 269, 232. cc: Wes Sheikh MD
[2019-09-14 21:50] LABS: HEMATOCRIT 20.9 % (42.0-52.0); HEMOGLOBIN 6.5 g/dL (14.0-18.0)
[2019-09-15] MEDS ORDERED: NS 500 ML ONE (00:27)
[2019-09-15] MEDS: ZITHROMAX 500 MG/NS 500 MG/250 ML IVPB IV SCH (00:52)
--- NOTE | 2019-09-15 01:43 | CONSULTATION ---
DATE OF CONSULTATION: 09/14/2019 REQUESTING PROVIDER: Dr. Wes Sheikh. REASON FOR CONSULTATION: Acute respiratory failure. HISTORY OF PRESENT ILLNESS: This is a 74-year-old male with a medical history of pulmonary hypertension, atrial fibrillation, severe aortic stenosis, hypertension, diabetes mellitus type 2, gout, benign prostatic hyperplasia, chronic kidney disease and unspecified sleep apnea. He has been admitted since 09/12/2019 with probable left lower lobe pneumonia, acute diastolic congestive heart failure, acute respiratory failure with hypercapnia. Initial chest x- ray also showed pleural and parenchymal fibrosis on the left. He has received 1 dose of azithromycin and continuous Rocephin since admission. However, chest x-ray continually showed significant worsening with moderate-sized left pleural effusion and interstitial pulmonary edema bilaterally with stable cardiomegaly and pulmonary vascular congestion. The patient also developed fever up to 100.7 yesterday. The patient currently is lying in bed with BiPAP mask on with FiO2 at 70%. His oxygen saturation stayed in low 90s. He appears lethargic with his eyes closed and nonresponsive to verbal stimuli. The patient's daughter and at the bedside. They reported the patient has been sick for a long time but refused to go see doctor. They report the patient has chronic dry cough with audible rattle noise during expiration at times and worsening shortness of breath with activities. Family also report patient does complained of chills at times, but no fever has been noted. The patient has a poor appetite recently due to sickness. He does have constipation at times. Family also reports patient usually drinks fluid a lot with unknown reason. He does have diabetes, but he refused to check blood sugar at home. The patient had witnessed snoring a long time ago, which has been improved for several years. PAST MEDICAL HISTORY: 1. Small pulmonary hypertension, moderate to severe per cardiac catheterization on 10/25/2017. 2. Atrial fibrillation, on chronic Coumadin. 3. Severe aortic stenosis status post aortic wall repair in October 2017. 4. Hypertension. 5. Diabetes mellitus type 2. 6. Gout. 7. Benign prostatic hyperplasia diagnosed by Dr. Mims, but the patient did not follow up with Dr. Mims. 8. Chronic kidney disease stage 3. 9. Unspecified sleep apnea. SOCIAL HISTORY: The patient uses Snuff tobacco all his life. He drinks beer occasionally. He is and lives at home with his family. He has no illicit drug use. FAMILY HISTORY: Positive for heart disease. ALLERGIES: No known drug allergies. REVIEW OF SYSTEMS: Unable to be obtained. PHYSICAL EXAMINATION: Vital Signs: Temperature 98.5 degrees, blood pressure 131/53, pulse 89, respiratory rate 20, oxygen saturation 99% on BiPAP with FiO2 of 70%. General: Chronically ill- appearing, lying in bed with a BiPAP mask on. No acute distress noted. HEENT: Atraumatic, normocephalic. Trachea midline. Mucosa pink and slightly dry as patient with mouth open. He appears to be a mouth breather. Respiratory: Even and unlabored. Symmetrical excursion. Auscultation revealed diminished breathing sounds bilaterally with some mild inspiratory crackles on the right lower lobe and the left lower lobe. Cardiovascular: Irregularly irregular with S1 and S2 noted. Gastrointestinal: Protuberant, soft, nontender. Normoactive bowel sounds in all 4 quadrants. Extremities: Bilateral lower extremity trace to 1+ up to the thigh area. Dorsalis pedis diminished bilaterally. No clubbing, no cyanosis. Neurologic: Lethargic. Able to follow simple commands at times, but not answering any questions. LAB DATA: PT 37.5, INR 3.65. Sodium 138, potassium 5.6, chloride 107, carbon dioxide 23, BUN 97, creatinine 2.1. Glucose 207, calcium 8.2. ProBNP 1482. IMAGING DATA: Chest x-ray on 09/13/2019 showed a moderate-size worsening left pleural effusion, stable cardiomegaly and pulmonary vascular congestion with worsening interstitial pulmonary edema bilaterally. ASSESSMENT: This is a 74-year-old male with a medical history of moderate to severe pulmonary hypertension, atrial fibrillation on chronic Coumadin, severe aortic stenosis, hypertension, diabetes mellitus type 2, gout, benign prostatic hyperplasia, chronic kidney disease stage 3, and unspecified sleep apnea. He has been admitted since 09/12/2019 with probable left lower lobe pneumonia, acute congestive heart failure, acute respiratory failure with hypercapnia. 1. Acute hypoxic hypercapnic respiratory failure. 2. Moderate left lower pleural effusion with pulmonary edema bilaterally. 3. Acute on chronic congestive heart failure. 4. Pneumonia. 5. Acute on chronic kidney disease, improving. 6. Atrial fibrillation. 7. Severe aortic stenosis status post aortic valve repair. PLAN: 1. Continue supplemental oxygen. Continue BiPAP as needed. 2. Discontinue IV fluid. Continue diuresis. 3. Continue antibiotic and bronchodilators. 4. Follow up with ABG, BMP, proBNP ABG and chest x-ray. 5. Further recommendations pending hospital course. Thank you for the courtesy of this consult. Dictated by STEW Saba for Radha Jimenez MD cc: STEW Saba MD [facility]
[2019-09-15] MEDS: DUONEB (A & A) INH SCH ×4 (03:25→21:44)
[2019-09-15 04:58] LABS: ALLEN TEST YES; BE 1.8 mmoll (-3.0-3.0); BLOOD TYPE ARTERIAL; HCO3-(ACT) 26.4 mmoll (20.0-26.0); METHB 0.9 % (0.0-1.5); O2(CT) 10.4 mL/dL (15.0-23.0); PCO2(98.6) 46 mmHg (35-45); PO2(98.6) 181 mmHg (60-100); SAMPLE BLOOD; SAO2 99.6 % (95.0-100.0); THB 7.3 g/dL (11.5-17.4); pH(98.6) 7.38 (7.35-7.45)
[2019-09-15 04:59] LABS: MODALITY BI PAP
[2019-09-15] MEDS: HUMALOG SUBQ SCH ×4 (06:05→21:55)
[2019-09-15 06:14] LABS: INR 4.08
--- NOTE | 2019-09-15 06:20 | Diag Imaging Result Doc PS360 ---
EXAM: CHEST-PORTABLE HISTORY: pulmonary venous HTN TECHNIQUE: Single view COMPARISON: 09/13/2019 FINDINGS: The infiltrates and atelectasis in the left base are less pronounced on the current study. There is a small left pleural effusion. No cardiomegaly. Mild pulmonary edema remains. IMPRESSION: Interval worsening Electronically signed by Shravan Falcon 09/15/2019 6:17 AM
[2019-09-15 06:46] LABS: PROTIME 40.9 Seconds (11.0-16.0)
[2019-09-15 06:53] LABS: CALCIUM 7.6 mg/dL (8.8-10.2); CREATININE 1.5 mg/dL (0.7-1.2); POTASSIUM 5.4 mmol/L (3.5-5.1)
[2019-09-15 09:00] LABS: HEMATOCRIT 24.4 % (42.0-52.0); HEMOGLOBIN 7.6 g/dL (14.0-18.0); MCH 30.8 PG (27-31); MCHC 31.1 g/dL (33-37); MCV 98.8 FL (81-99); MPV 11.3 FL (7.4-10.4); RBC 2.47 XMIL (4.7-6.1); RDW 16.9 % (11.5-14.5); WBC 12.65 X1000 (4.8-10.8)
[2019-09-15] MEDS: CARDIZEM CD PO SCH (09:30)
[2019-09-15] MEDS: FLOMAX PO SCH ×2 (09:30→21:55)
[2019-09-15] MEDS: LANOXIN PO SCH (09:31)
[2019-09-15] MEDS: KLOR-CON PO SCH (09:31)
[2019-09-15] MEDS: ROCEPHIN 1 GM in NS 50 ML IV SCH (09:32)
[2019-09-15] MEDS: LASIX IV SCH (09:32)
[2019-09-15] MEDS: LANTUS INSULIN SUBQ SCH (09:33)
[2019-09-15] MEDS ORDERED: VITAMIN K 10 MG in NS 50 ML IV ONE (12:17)
[2019-09-15 12:50] LABS: HEMATOCRIT 21.1 % (42.0-52.0); HEMOGLOBIN 6.6 g/dL (14.0-18.0)
[2019-09-15] MEDS ORDERED: NS 500 ML IV SCH ×2 (13:45→13:47)
[2019-09-15] MEDS ORDERED: PROTONIX 80 MG in NS 80 ML IV ONE (13:49)
[2019-09-15] MEDS: PROTONIX 80 MG in NS 80 ML IV SCH (15:30)
--- NOTE | 2019-09-15 17:01 | PROGRESS NOTE ---
DATE: 09/15/2019 SUBJECTIVE: Mr. Verdugo is breathing better. He seems a little stronger. He did have some dark stools and his hematocrit and hemoglobin dropped, and GI was consulted. We are going to try and get his ProTime down with fresh frozen and some vitamin K. OBJECTIVE: Temperature 97.6 degrees, pulse 104, respirations 24, blood pressure 116/48. Pupils are equal and round. Lungs: Clear in all lung lin. Cardiovascular: Regular rhythm and rate without murmur or S3. Abdomen: Soft. Skin: Warm and dry. LABORATORY AND DIAGNOSTIC DATA: Urine output is 2400 mL. Chest x-ray: Interval worsening. Infiltrates and atelectasis in left base, less pronounced on the current study. There is small left pleural effusion. No cardiomegaly. Mild pulmonary edema remains. ASSESSMENT AND PLAN: 1. Acute on hypoxic hypercapnic respiratory failure. 2. Moderate left lower lobe pleural effusion, pulmonary edema bilaterally. 3. Acute on chronic congestive heart failure. 4. Pneumonia. 5. Acute on chronic kidney disease, which is improving. 6. Atrial fibrillation, rate controlled. 7. Severe aortic stenosis, status post aortic valve repair. 8. Melena, upper gastrointestinal blood loss. We are going to try and get his ProTime down with some fresh frozen and vitamin K. Possibly will need an EGD. cc: Wes Sheikh MD
--- NOTE | 2019-09-15 19:31 | GASTROENTEROLOGY CONSULTATION ---
DATE: 09/15/2019 REASON FOR CONSULTATION: Upper GI bleed. HISTORY OF PRESENT ILLNESS: Mr. Verdugo is a 74-year-old, male, who has a past history of atrial fibrillation, status post aortic valve repair, hypertension, type 2 diabetes, gout, and history of chronic dyspnea on exertion. The patient mentioned that he was brought to the hospital because his breathing had worsened. He has been in the hospital since 09/10. He had cough the previous 2 days, with increased shortness of breath even while he was resting. He was sweating, weak, had periods of confusion without loss of consciousness. This happened when we went to the bathroom. He denied any fever, chills. The patient mentioned having edema in the lower extremity. His heart rate in the hospital was running in the 140s. He had atrial fibrillation with RVR. He was given Cardizem to bring his heart rate down. The patient is currently in the ICU. His hemoglobin on admission was 13.7 and hematocrit was 22.1. Today, his hemoglobin is 6.6, hematocrit 21.1. The patient is on Coumadin and aspirin. His PT was 22.6 and INR was 1.9 and today it is 40.9 and INR is 4.08. His chest x-ray on 09/10/2019, showed pleural and parenchymal fibrosis on the left, questionable right lower lobe atelectasis versus pneumonia. Chest x-ray on 09/11/2019, showed worsening indeterminate infiltrate throughout the lung bases. Chest x-ray on 09/13/2019, showed significant worsening from the prior chest x-ray. Today, it shows interval worsening. PAST MEDICAL HISTORY: Atrial fibrillation, status post aortic valve repair, hypertension, diabetes type 2, gout, dyspnea on exertion, benign prostatic hyperplasia, chronic kidney disease, and sleep apnea. ALLERGIES: No known drug allergies. SURGICAL HISTORY: Aortic valve repair. FAMILY HISTORY: Significant for heart disease. SOCIAL HISTORY: The patient is . He has been having tobacco all his life. Drinks beer occasionally. Denied any illicit drug use. HOME MEDICATIONS: Triamterene/hydrochlorothiazide 37.5/25 mg p.o. daily, allopurinol 300 mg p.o. daily, Onglyza 5 mg p.o. daily, diltiazem HCL 240 mg p.o. daily, digoxin 0.25 mg p.o. daily, aspirin 81 mg p.o. daily, ramipril 10 mg p.o. daily, warfarin 5 mg p.o. daily, furosemide 40 mg p.o. daily, potassium chloride 10 mEq p.o. daily. REVIEW OF SYSTEMS: As per HPI. Otherwise, a 12-point review of systems is negative. PHYSICAL EXAMINATION: vital signs: Temperature 98.7, pulse 90, respirations 20, blood pressure 133/56, oxygen saturation 100% on 5 L nasal cannula. The patient's weight is 181 pounds. BMI is 33.5 kg/m2. General: Alert, oriented x2. Answering questions appropriately and in no acute distress. HEENT: Pale conjunctivae. No icterus. PERRL. Neck: Supple. Lungs: Wheezing heard in the anterior lin. Cardiovascular: Regular rate and rhythm. Abdomen: Soft, obese, nontender. Active bowel sounds heard in all 4 quadrants. Extremities: No clubbing, no cyanosis. Generalized edema in the lower extremities. Pedal pulses 1+ present bilaterally. Neurological: Alert, oriented x3. Nonfocal. Cranial nerves 2-12 grossly intact. LABORATORY AND DIAGNOSTIC DATA: WBC is 12.65, RBC is 2.47, hemoglobin is 6.6, hematocrit is 21.1, platelet count is 175,000. PT is 40.9, INR is 4.08. Sodium 145, potassium 5.4, chloride is 111, carbon dioxide is 25, anion gap is 9, BUN is 125, creatinine is 1.5, glucose is 301, calcium 7.6. ProBNP is 963. Chest x-ray today, showed interval worsening. IMPRESSION AND PLAN: - GI bleed - Acute blood loss anemia - Pneumonia - AFIB - Coagulopathy - CKD - COPD PLAN: Mr. Verdugo is a 74-year-old, male, with a history of atrial fibrillation, status post aortic valve repair. GI has been consulted for his GI bleed and anemia. We had planned to do his EGD tomorrow, but the patient's PT and INR is extremely elevated. His PT today is 40.9 and INR 4.08. The patient's hemoglobin and hematocrit is 6.6 and 21.1. He will be receiving 2 units of fresh frozen plasma and has received 2 units of blood. We have also ordered Protonix 80 mg IV drip. The patient is receiving antibiotics Rocephin and Zithromax for his pneumonia. The plan is to do his EGD on Wednesday. We discussed the risks, benefits, and alternatives of the procedure with the patient. We will also monitor his hemoglobin and hematocrit, PT and INR. We will continue to monitor the patient and follow the plan of care per PCP. This plan was discussed with Dr. Cam. Thank you for your consult. Please call us for any further questions or concerns. Dictated by STEW Huggins for Jose D Cam MD Physician Attestation I have seen and examined the patient. I have discussed and reviewed the note by Cha MATHIAS and agree with findings and plan as documented. In brief, Mr. Verdugo is a 74 year old woman with COPD, CKD, AFIB s/p AVR on coumadin and aspirin who presented with UGIB. Reverse INR. Transfuse for goal hgb 7-8, PPI IV BID. Will plan EGD. MTDD
--- NOTE | 2019-09-15 20:45 | PULMONOLOGY PROGRESS NOTE ---
DATE: 09/15/2019 SUBJECTIVE: Mr. Verdugo is sitting up in the bed. He states that he feels better today. He states that he is breathing better, and he thinks he is hungry. OBJECTIVE: Vital Signs: Blood pressure is 135/70 with a heart rate of 101. Respirations are 18. Temperature is 97.6 oral with O2 saturations that are 96% to 100% on a Venturi mask. Cardiovascular: He has an irregularly irregular rate and rhythm. S1 and S2 appreciated. He has bilateral upper extremity edema with trace pretibial edema to lower extremities. Calves are nontender bilaterally. Pulmonary: Breath sounds with expiratory wheezes noted. Chest rises and falls symmetrically with respiration. Chest wall is nontender to palpation. Gastrointestinal: Abdomen is soft, nontender, nondistended with bowel sounds in all 4 quadrants. Neurologic: He is alert and oriented. Skin: Warm and dry. LABS: WBCs 12.6 with hemoglobin 7.6, hematocrit 24.4, platelets 175. INR is 4.0. Sodium 145, potassium 5.4, BUN 25, creatinine 1.5, with a glucose ranging from 300 to 330. ABGs: PH is 7.38 with a pCO2 of 46, pO2 of 181, and bicarb of 26.4. This was on BiPAP. The patient is currently on a Venturi mask at 40% with saturations of 100%. ASSESSMENT AND PLAN: 1. Respiratory failure with hypercapnia, improving. continue supplemental oxygen. Bipap at night and prn. 2. Acute congestive heart failure. IV diuresis. 3. Left lower lobe pneumonia. incentive spirometer as well as DuoNeb treatments, antibiotics - Rocephin and Zithromax. 4. Acute kidney injury in the setting of chronic kidney disease, improving. 5. Atrial fibrillation, anticoagulation on hold 6. Diabetes mellitus type 2. Pattern blood glucoses with sliding-scale insulin as per primary team. The plan was discussed with Dr. Briones. Dictated by STEW Henry for Malcom Briones MD The clinical exam was performed by STEW Nava. I have reviewed and agree with the assessment and plan. Malcom Briones M.D. cc: STEW Henry MD [facility]
[2019-09-16] MEDS: ZITHROMAX 500 MG/NS 500 MG/250 ML IVPB IV SCH (00:45)
[2019-09-16] MEDS: DUONEB (A & A) INH SCH ×4 (03:40→21:10)
[2019-09-16 05:00] LABS: ALLEN TEST YES; BE 5.8 mmoll (-3.0-3.0); BLOOD TYPE ARTERIAL; HCO3-(ACT) 29.4 mmoll (20.0-26.0); O2(CT) 11.6 mL/dL (15.0-23.0); O2HB 94.8 % (95.0-99.0); PO2(98.6) 163 mmHg (60-100); SAMPLE BLOOD; SAO2 99.8 % (95.0-100.0); THB 8.4 g/dL (11.5-17.4); pH(98.6) 7.33 (7.35-7.45)
[2019-09-16 05:05] LABS: MODALITY VENTILATOR; PCO2(98.6) 62 mmHg (35-45)
[2019-09-16] MEDS: HUMALOG SUBQ SCH ×5 (06:22→20:39)
--- NOTE | 2019-09-16 07:17 | Diag Imaging Result Doc PS360 ---
EXAM: CHEST-PORTABLE 09/16/2019 HISTORY: hypoxemic resp failure TECHNIQUE: AP portable at 0553 COMMENT: There is blunting of the left costophrenic angle. There is pleural thickening versus loculated effusion on the left. There are coarse and platelike opacities in the left lower lobe and lingula. The heart size and pulmonary vascularity are within normal limits. Compared to the previous study the opacity in the left base medially has improved. IMPRESSION: Chronic pleural changes on the left. Improved bibasilar atelectasis versus pneumonia. Electronically signed by Miah Urena 09/16/2019 7:14 AM
[2019-09-16 07:37] LABS: BASO# 0.07 X1000 (0.0-0.2); BASO% 0.5 % (0.0-0.8); HEMATOCRIT 23.2 % (42.0-52.0); HEMOGLOBIN 7.5 g/dL (14.0-18.0); IMM GRAN# 0.49 X1000 (0.0-0.04); IMM GRAN% 3.4 % (0.0-0.5); INR 1.23; LYMPH# 1.69 X1000 (1.2-3.4); LYMPH% 11.8 % (20.5-51.1); MCH 29.9 PG (27-31); MCHC 32.3 g/dL (33-37); MCV 92.4 FL (81-99); MONO% 11.8 % (1.7-9.3); MPV 11.6 FL (7.4-10.4); NEUT# 10.42 X1000 (1.4-6.5); NEUT% 72.5 % (42.2-75.2); PLT 162 X1000 (130-400); PROTIME 15.7 Seconds (11.0-16.0); RBC 2.51 XMIL (4.7-6.1); RDW 18.9 % (11.5-14.5); WBC 14.37 X1000 (4.8-10.8)
[2019-09-16 08:38] LABS: BANDS 2 % (0-1); LYMPHS 10 % (21-51); MONO 14 % (1-9); SEGS 72 % (42-75)
[2019-09-16 08:42] LABS: ALB/GLOB RATIO 0.9; ALBUMIN 2.3 g/dL (3.5-5.0); CALCIUM 8.4 mg/dL (8.8-10.2); CREATININE 1.3 mg/dL (0.7-1.2); POTASSIUM 5.4 mmol/L (3.5-5.1); TOTAL BILIRUBIN 0.28 mg/dL (0.20-1.00)
[2019-09-16] MEDS: CARDIZEM CD PO SCH (09:34)
[2019-09-16] MEDS: LANOXIN PO SCH (09:34)
[2019-09-16] MEDS: LASIX IV SCH (09:35)
[2019-09-16] MEDS: FLOMAX PO SCH ×2 (09:35→20:39)
[2019-09-16] MEDS: LANTUS INSULIN SUBQ SCH (09:40)
[2019-09-16] MEDS: ROCEPHIN 1 GM in NS 50 ML IV SCH (09:40)
[2019-09-16] MEDS: KLOR-CON PO SCH (09:40)
[2019-09-16] MEDS: PROTONIX 80 MG in NS 80 ML IV SCH ×3 (09:41)
[2019-09-16] MEDS ORDERED: D5W 1,000 ML IV SCH (13:00)
[2019-09-16] MEDS: PROTONIX IV SCH (14:23)
[2019-09-16 14:30] LABS: BASO# 0.05 X1000 (0.0-0.2); BASO% 0.3 % (0.0-0.8); EOS# 0.04 X1000 (0.0-0.7); EOS% 0.3 % (0.0-10.0); HEMATOCRIT 22.2 % (42.0-52.0); HEMOGLOBIN 7.1 g/dL (14.0-18.0); IMM GRAN# 0.65 X1000 (0.0-0.04); IMM GRAN% 4.2 % (0.0-0.5); LYMPH% 12.3 % (20.5-51.1); MCH 30.1 PG (27-31); MCV 94.1 FL (81-99); MONO# 1.68 X1000 (0.11-0.59); MONO% 10.9 % (1.7-9.3); MPV 10.6 FL (7.4-10.4); PLT 150 X1000 (130-400); RBC 2.36 XMIL (4.7-6.1); RDW 18.9 % (11.5-14.5); WBC 15.42 X1000 (4.8-10.8)
[2019-09-16 14:53] LABS: ANISOCYTOSIS 2+; BANDS 1 % (0-1); LYMPHS 16 % (21-51); MONO 5 % (1-9); NRBC 2 % (0-0); SEGS 77 % (42-75)
[2019-09-16 14:54] LABS: LARGE PLATELETS 1+
[2019-09-16] MEDS ORDERED: NS 500 ML IV SCH (15:30)
--- NOTE | 2019-09-16 15:49 | PULMONOLOGY PROGRESS NOTE ---
DATE: 09/16/2019 SUBJECTIVE: The patient states that he feels much better today. He is sitting up in the bed with nasal cannula on. He denies any shortness of breath. He is hungry and asking for food. OBJECTIVE: Vital Signs: Blood pressure is 157/55 with a heart rate of 93, respirations are 20, temperature is 98.3 degrees with O2 saturations 100% on nasal cannula. PHYSICAL EXAMINATION: General: This is a 74-year-old gentleman who is sitting up on the bed in the ICU in no distress. Eyes: Pupils are equal, round, react to light. EOMs are intact. Sclerae are anicteric. HEENT: Head is normocephalic, atraumatic. Mucous membranes are moist. Neck: Supple with trachea midline. Cardiovascular: Irregular irregular rate and rhythm. S1 and S2 appreciated. He has upper and lower generalized pitting edema that is 1 to 2+. Pulmonary: Breath sounds are coarse. He does have rhonchi that partially clear to cough. Chest rises and falls symmetric with respiration. Gastrointestinal: Abdomen is soft, nontender, nondistended with bowel sounds in all 4 quadrants. Neurologic: He is alert and oriented. Skin: Warm and dry. LABS: WBC is 14.3, with hemoglobin 7.5, hematocrit 23.2, and platelets of 162,000. Sodium 151, potassium 5.4, BUN 112, creatinine 1.3 with glucose of 267. ABGs, pH is 7.33 with a pCO2 of 62, PO2 of 163, and bicarb of 29.4. This is on BiPAP at 40%, 18/8. ASSESSMENT: 1. Acute hypoxic hypercapnic respiratory failure. 2. Pleural thickening versus a loculated effusion on the left. stable 3. Acute on chronic congestive heart failure with an ejection fraction of 65 to 70 percent in November 2018. 4. Left lower lobe pneumonia. 5. Acute kidney injury in the setting of chronic kidney disease. This is improving. 6. Diabetes mellitus type 2. 7. Melena, GI bleed. This is currently being followed by Dr. Cam in Gastroenterology. 8. Hypernatremia - D5w PLAN: continue cycling BiPAP at night, supplementing oxygen through the day Continue bronchodilators, steroids, incentive spirometer. holding anticoagulation while GI workup is in progress. Pattern blood glucose with sliding scale insulin as per primary team. The plan was discussed with Dr. Briones. Dictated by STEW Henry for Malcom Briones MD Clinical exam was performed by STEW Nava. I agree with the assessment and plan as outlined above. Malcom Briones M.D. cc: STEW Henry MD [facility]
--- NOTE | 2019-09-16 17:24 | PROGRESS NOTE ---
DATE: 09/16/2019 SUBJECTIVE: Mr. Verdugo feels better today. His breathing is a little more comfortable. No nausea. OBJECTIVE: Vital signs: Temp 97.8 degrees, pulse 87,. respirations 20, blood pressure 151/60. HEENT: Pupils are equal and round. Lungs: Lungs are clear in all lung lin. Cardiovascular: Regular rhythm and rate without murmur or S3. Intake and Output: Urine output was 5800 mL. ASSESSMENT AND PLAN: 1. Acute hypoxic hypercapnic respiratory failure. He has some pleural thickening versus loculated effusion on the left. 2. Acute on chronic congestive heart failure with ejection fraction 65 to 70 percent, so diastolic dysfunction. 3. Left lower lobe pneumonia. 4. Acute kidney injury on top of chronic kidney disease, which is improving. His creatinine is down to 1.3, which is encouraging. 5. Diabetes mellitus type 2. Sugars under good control. 6. Melena and upper gastrointestinal bleeding. Dr. Cam was following. Plan is to do an EGD. Continue his BiPAP at night, bronchodilator, steroids, incentive spirometry, supplemental oxygen. REVIEW OF ORDERS: I do not see any change. He is on ceftriaxone 1 g q.24 hours, getting Coumadin 5 mg at bedtime, which we are holding. We gave him some fresh frozen, and his PT is down to 15.7, INR is 1.23. cc: Wes Sheikh MD
--- NOTE | 2019-09-16 20:32 | GASTROENTEROLOGY PROGRESS NOTE ---
DATE: 09/16/2019 SUBJECTIVE: Patient resting in bed. He had one bowel movement today this afternoon which was black, tarry. His blood counts have stabilized. His INR is corrected. Current INR is 1.23. He still has leukocytosis which is getting worse. He has so far gotten 4 units of blood transfusion and 2 units of FFP. He is on nasal cannula oxygen which is being weaned down. Vital signs: Temperature 98.2 degrees, pulse of 84, respiratory 20, blood pressure 150/51, saturating 90% 2 L nasal cannula. Body weight of 239 pounds, 14.4 ounces. BMI of 33.5 kg. General: Patient is obese, lying in bed, in no acute distress. HEENT: Pale conjunctivae. No icterus. Nasal cannula in place. He is still a little tachypneic. Neck: Is supple. Abdomen: Is obese, soft, nontender, nondistended. No guarding or rebound. Extremities: No cyanosis, clubbing. Neurologic: Alert, awake, and answers questions to some questions. LABS: Hemoglobin and hematocrit is 7.1 and 22.2. White count 15.42. Platelet count of 150,000. INR 1.23. PT of 15.7. ABG showing pH 7.33, pCO2 of 62, PO2 163. This is on BiPAP ventilator 40% from this morning. Sodium 151, potassium 5.4, chloride 113, bicarb 27, anion gap 9, BUN of 112, creatinine 1.3, glucose of 267, calcium is 8.4, total bilirubin is 0.28, AST 10, ALT 9, alkaline phosphatase 36, total protein is 5, albumin of 2.3. Stool for occult blood was positive and nasopharyngeal influenza screen is negative for A and B. Chest x-ray done today showed blunting of left costophrenic angle. There is pleural thickening versus loculated effusion on the left. There are coarse and platelike opacities in left lower lobe and lingula the heart size and pulmonary vascularity within normal limits. IMPRESSION AND PLAN: 1. Acute hypoxic respiratory failure. Being managed by pulmonary team. 2. Pleural thickening versus loculation on the left. 3. Acute on chronic congestive heart failure. 4. Left lower lobe pneumonia. 5. Acute kidney injury in the setting of chronic kidney disease. 6. Type 2 diabetes. 7. Melena. 8. GI bleed. RECOMMENDATIONS: His breathing status is improving. He was on BiPAP for last night. They are weaning down his oxygen. He is getting IV diuresis per the primary care team. He is on bronchodilator, steroids, and incentive spirometer. His anticoagulation was withheld. His INR is being corrected. He continues to have electrolyte imbalance. He is hypernatremic. This is being managed by the primary care team. We will continue Protonix drip for now. We will continue to transfuse to keep hematocrit more than 23%. We will schedule him for EGD tomorrow morning if his respiratory status continues to improve or Wednesday morning based on his clinical course and overall status. I have discussed the above plan with the patient and family at bedside. All questions answered. Please call with any further questions. We will follow along the above with the patient and family. cc: MD Wes Ford MD Marlin D. Gill, MD MTDD
[2019-09-16 20:59] LABS: BASO# 0.02 X1000 (0.0-0.2); BASO% 0.1 % (0.0-0.8); EOS# 0.08 X1000 (0.0-0.7); EOS% 0.5 % (0.0-10.0); HEMATOCRIT 26.8 % (42.0-52.0); HEMOGLOBIN 8.6 g/dL (14.0-18.0); LYMPH# 1.85 X1000 (1.2-3.4); LYMPH% 12.1 % (20.5-51.1); MCH 30.5 PG (27-31); MCHC 32.1 g/dL (33-37); MONO# 2.05 X1000 (0.11-0.59); MONO% 13.4 % (1.7-9.3); NEUT# 11.26 X1000 (1.4-6.5); NEUT% 73.9 % (42.2-75.2); PLT 137 X1000 (130-400); RBC 2.82 XMIL (4.7-6.1); WBC 15.26 X1000 (4.8-10.8)
[2019-09-16 21:34] LABS: ANISOCYTOSIS 2+; BANDS 2 % (0-1); LYMPHS 9 % (21-51); MONO 2 % (1-9); NRBC 5 % (0-0); SEGS 87 % (42-75)
[2019-09-17] MEDS: ZITHROMAX 500 MG/NS 500 MG/250 ML IVPB IV SCH (01:15)
[2019-09-17] MEDS: PROTONIX IV SCH ×2 (02:45→13:35)
[2019-09-17] MEDS: HUMALOG SUBQ SCH ×6 (03:24→20:41)
[2019-09-17] MEDS: DUONEB (A & A) INH SCH ×4 (03:35→21:20)
[2019-09-17 04:56] LABS: ALLEN TEST YES; BE 10.3 mmoll (-3.0-3.0); BLOOD TYPE ARTERIAL; METHB 0.6 % (0.0-1.5); O2(CT) 11.9 mL/dL (15.0-23.0); O2HB 96.9 % (95.0-99.0); PO2(98.6) 138 mmHg (60-100); SAMPLE BLOOD; SAO2 99.5 % (95.0-100.0); THB 8.5 g/dL (11.5-17.4)
[2019-09-17 04:58] LABS: MODALITY BI PAP
[2019-09-17 04:59] LABS: PCO2(98.6) 59 mmHg (35-45)
[2019-09-17 07:15] LABS: INR 1.15; PROTIME 14.9 Seconds (11.0-16.0)
[2019-09-17 07:20] LABS: ESTIMATED GFR > 60
[2019-09-17 07:55] LABS: AGAP 8; BUN 78 mg/dL (8-22); CALCIUM 8.8 mg/dL (8.8-10.2); CHLORIDE 117 mmol/L (98-107); COSMO 339; CREATININE 1.1 mg/dL (0.7-1.2); GLUCOSE 179 mg/dL (70-104); POTASSIUM 4.7 mmol/L (3.5-5.1); SODIUM 157 mmol/L (136-145); TCO2 32 mmol/L (25-35)
--- NOTE | 2019-09-17 08:39 | ECHO REPORT ---
ORDER DATE: 09/16/2019 INTERPRETING PHYSICIAN: Dr. Walters REQUESTING PHYSICIAN: CLINICAL INDICATIONS: This is a 74-year-old male with previous aortic valve replacement using TAVR, atrial fibrillation, pneumonia. M-MODE MEASUREMENTS: Right ventricle: cm. Left ventricle end diastole: 4.6 cm. Left ventricle end systole: 3.0 cm. Posterior wall: 1.1 cm. Interventricular septum: 1.1 cm. Left atrium: 5.1 cm. Aortic root: 2.8 cm. SUMMARY OF 2-DIMENSIONAL IMAGIN. The left ventricular function appears to be hyperdynamic. Optison was added to optimize visualization of endocardium. Ejection fraction is excellent. 2. Aortic valve is a bioprosthetic valve. It shows normal opening. There is no regurgitation. Maximum gradient is 22 mmHg, mean gradient is 13 mmHg. This is normal. 3. Left atrium is moderately to significantly enlarged. 4. Color flow mapping of mitral valve indicates minimal degree of regurgitation. 5. Diastolic function cannot be properly performed or evaluated because of the atrial fibrillation. That is a permanent feature of this patient. 6. Pulmonic valve is unremarkable. 7. Tricuspid valve shows no significant regurgitation. 8. The pulmonary pressure is estimated at 46 mmHg. 9. The right-sided chambers are slightly prominent. 10.There is no pericardial effusion, masses or thrombus. CONCLUSIONS: In summary, this study shows: 1. Excellent left ventricular systolic function. 2. Normal function of the prosthetic aortic valve. 3. Pulmonary pressure is 46 mmHg. 4. No significant mitral regurgitation. 5. 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 Clinical correlation is recommended. cc: MD Wes Hanson MD
[2019-09-17] MEDS: LANOXIN PO SCH (08:45)
[2019-09-17] MEDS: KLOR-CON PO SCH (08:45)
[2019-09-17] MEDS: FLOMAX PO SCH ×2 (08:45→20:41)
[2019-09-17] MEDS: LASIX IV SCH (08:45)
[2019-09-17] MEDS: ROCEPHIN 1 GM in NS 50 ML IV SCH (08:46)
[2019-09-17] MEDS: CARDIZEM CD PO SCH (08:46)
[2019-09-17] MEDS: LANTUS INSULIN SUBQ SCH (08:46)
[2019-09-17] MEDS: ELDERTONIC PO SCH (09:39)
[2019-09-17] MEDS: CLINIMIX E 4.25%-5% SOLUTION 1,000 ML IV SCH (11:02)
[2019-09-17] MEDS: D5W 1,000 ML IV SCH (13:35)
[2019-09-17] MEDS: CARAFATE LIQUID PO SCH ×2 (13:35→20:41)
--- NOTE | 2019-09-17 14:11 | PROGRESS NOTE ---
DATE: 09/17/2019 SUBJECTIVE: Mr. Verdugo is doing much better, feels better. He is eating some ice. He was sitting up. His is at the bedside. He still has bilateral unintentional tremor both hands. OBJECTIVE: Vital signs: Temperature 98.1 degrees, pulse 76, respirations 27, blood pressure 145/54. HEENT: Pupils are equal and round. Lungs: Clear in all lung lin. Cardiovascular: Regular rhythm and rate without murmur or S3. Urine output was 3700 mL. ASSESSMENT AND PLAN: 1. Acute hypoxemic hypercapnic respiratory failure. Has some pleural thickening versus loculated effusion on the left. Doing much better from that. Air and gas exchange has improved. 2. Acute on chronic congestive heart failure, ejection fraction estimated to be 65 to 70%, diastolic dysfunction. 3. Left lower lobe pneumonia, improving. 4. Acute kidney injury. His renal function is improving. 5. Diabetes mellitus type 2. We are following pattern sugars, sliding scale. 6. Lastly he had anemia, we think gastrointestinal blood loss anemia. Hematocrit got down to 21, hemoglobin 6.6. He was given 2 units of packed red blood cells. Dr. Vincent has been following. 7. We are still using BiPAP as needed. Getting IV diuresis. Continue bronchodilators and steroids. Then I think they plan on doing an EGD, depending on how his outcome is. He had an echocardiogram read by Dr. Walters. Excellent left ventricular systolic function. Normal function of the prosthetic aortic valve. Pulmonary pressure is 46 mmHg. No mitral regurgitation. Moderate enlargement of left atrium with long-term atrial fibrillation. In looking at his electrolytes, his creatinine is down to 1.1. cc: Wes Sheikh MD
--- NOTE | 2019-09-17 14:25 | PULMONOLOGY PROGRESS NOTE ---
DATE: 09/17/2019 SUBJECTIVE: The patient is sitting up in the bed today, eating ice chips. He states that he feels much better. He denies any shortness of breath. DISCHARGE VITAL SIGNS: Blood pressure is 167/60 with a heart rate of 80, respirations are 18, temperature is 98.1 degrees, with O2 saturations 96 to 98% on 2 L nasal cannula. Cardiovascular: Irregularly irregular rate and rhythm. S1 and S2 appreciated. He does continue with upper and lower generalized pitting edema, although it is about 1+ today. Pulmonary: Breath sounds are coarse. He has rhonchi that partially clear to cough. Chest rises and falls symmetrically with respiration. Gastrointestinal: Abdomen is soft, nontender, nondistended with bowel sounds in all 4 quadrants. Neurologic: He is alert and oriented. Skin: Warm and dry. LABS: Sodium is 157, potassium 4.7, BUN 78, creatinine 1.1, with a glucose of 179. ABGs, pH is 7.40, with a pCO2 of 59, PO2 138, and bicarb of 33. This was on BiPAP at 40% with 18/8. Currently he is on nasal cannula. ASSESSMENT AND PLAN: 1. Acute hypoxemic respiratory failure. continue to cycle BiPAP with supplemental oxygen through the day. 2. Pleural thickening versus loculated effusion. 3. Left lower lobe pneumonia. This is improving. continue with antibiotic coverage of azithromycin and Rocephin. 4. Acute on chronic congestive heart failure with ejection fraction of 65 to 70%. We will continue his current treatment. 5. Acute kidney injury in the setting of chronic kidney disease. Creatinine is 1.1. continue to monitor labs. 6. Diabetes mellitus type 2. 7. Melena with gastrointestinal bleed. Currently being followed by Gastroenterology. Endoscopy is scheduled for 09/18/2019. Plan was discussed with Dr. Briones. Dictated by STEW Henry for Malcom Briones MD cc: STEW Henry MD [facility]
--- NOTE | 2019-09-17 20:53 | GASTROENTEROLOGY PROGRESS NOTE ---
DATE: 09/17/2019 ATTENDING PHYSICIAN: Wes Sheikh MD PRIMARY CARE DOCTORS: Gris Jenkins MD. SUBJECTIVE: The patient currently resting in bed. I spoke with the patient's family at bedside. The patient is feeling better. He is more awake and alert. He is requiring less oxygen. His hematocrit is stable. He had 1 bowel movement listed for yesterday, none so far today. We are planning for EGD tomorrow morning. OBJECTIVE: Vital signs: Temperature of 98.4 degrees, pulse of 82, respiratory rate 28, blood pressure 164/54, saturating 96% on 2 L nasal cannula. Body weight of 239 pounds 14.4 ounces. BMI of 33.5 kg/m2. General Appearance: Morbidly obese lying in bed, in no acute distress. HEENT: Positive pallor. No icterus. Pupils equal, reactive to light and accommodation. Neck: Is supple. Abdomen: Is obese soft, nontender, nondistended. No guarding. No rebound. Mild discomfort in the epigastrium. No rebound. Extremities: No cyanosis, clubbing. Mild lower extremity edema in the lower extremities. Neurology: He is awake, alert, and answers simple questions. LABS: Hemoglobin and hematocrit is 8.6 and 26.8. White count 15.6, platelet count of 137,000. MCV of 95. His INR 1.15, PT of 14.9. ABG showing pH of 7.40, pCO2 of 39, PO2 of 138. He is on BiPAP 40% FiO2. Sodium of 157, potassium 4.7, chloride 117, bicarb of 30.9 with BUN of 78, creatinine 1.1 glucose of 179, calcium 8.8. IMPRESSION AND PLAN: 1. Acute hypoxic hypercapnic respiratory failure. He is being followed by Dr. Briones. 2. Acute on chronic congestive heart failure. Ejection fraction is 70% and has diastolic dysfunction being followed primary care team. 3. Left lower lobe pneumonia is improving. 4. Acute kidney injury. Improving. 5. Type 2 diabetes. On sliding scale insulin. 6. Anemia. Continue to watch for now, transfuse as needed. 7. Melena. This has slowed down. We will keep on Protonix b.i.d.. We will watch his hematocrit. We will schedule for esophagogastroduodenoscopy tomorrow morning under anesthesia. The risks, benefits, indications, and alternatives to the procedure were discussed with the patient and family. All questions answered. The patient's family agreed to proceed with the above. 8. History of prosthetic aortic valve. Aware. His anticoagulation is on hold. 9. Obesity. The patient was counseled to lose weight after it causing acute illness. 10. Gastrointestinal prophylaxis. Proton pump inhibitors. The above plan of care discussed with the patient and family at bedside and the nursing staff and all questions answered. Please call us with any further questions. Dr. Wes Sheikh and Gris Jenkins, thank you for allowing us to participate in the care of this patient. cc: Tavares Vincent MD
[2019-09-18] MEDS: D5W 1,000 ML IV SCH (00:37)
[2019-09-18] MEDS: ZITHROMAX 500 MG/NS 500 MG/250 ML IVPB IV SCH (00:37)
[2019-09-18] MEDS: PROTONIX IV SCH ×3 (00:37→12:49)
[2019-09-18] MEDS: HUMALOG SUBQ SCH ×6 (00:37→20:14)
[2019-09-18] MEDS: CARAFATE LIQUID PO SCH ×4 (02:50→20:16)
[2019-09-18] MEDS: DUONEB (A & A) INH SCH ×4 (03:30→21:41)
--- NOTE | 2019-09-18 04:18 | GASTROENTEROLOGY PROGRESS NOTE ---
see the dictated note from 09-17-2019 cc: Dr. Kori Vincent MD [facility]ALTH[facility]
[2019-09-18 04:46] LABS: ALLEN TEST YES; BE 11.2 mmoll (-3.0-3.0); BLOOD TYPE ARTERIAL; HCO3-(ACT) 33.7 mmoll (20.0-26.0); O2(CT) 12.1 mL/dL (15.0-23.0); O2HB 96.4 % (95.0-99.0); PO2(98.6) 149 mmHg (60-100); SAMPLE BLOOD; SAO2 98.8 % (95.0-100.0); THB 8.7 g/dL (11.5-17.4); pH(98.6) 7.44 (7.35-7.45)
[2019-09-18 04:48] LABS: MODALITY BI PAP; PCO2(98.6) 54 mmHg (35-45)
[2019-09-18] MEDS: CLINIMIX E 4.25%-5% SOLUTION 1,000 ML IV SCH ×2 (05:05→06:14)
[2019-09-18 06:57] LABS: ESTIMATED GFR > 60
[2019-09-18 06:58] LABS: INR 1.17; PROTIME 15.1 Seconds (11.0-16.0)
[2019-09-18 07:19] LABS: AGAP 8; ALBUMIN 2.5 g/dL (3.5-5.0); ALKALINE PHOSPHATASE 36 U/L (32-122); BUN 54 mg/dL (8-22); CHLORIDE 113 mmol/L (98-107); COSMO 326; GLUCOSE 228 mg/dL (70-104); GOT 10 U/L (10-34); GPT 6 U/L (10-44); MAGNESIUM 1.8 mg/dL (1.5-2.7); PHOSPHORUS 2.4 mg/dL (2.7-4.5); POTASSIUM 4.5 mmol/L (3.5-5.1); SODIUM 153 mmol/L (136-145); TCO2 32 mmol/L (25-35); TOTAL BILIRUBIN 0.23 mg/dL (0.20-1.00); TOTAL PROTEIN 5.1 g/dL (6.3-8.3)
--- NOTE | 2019-09-18 08:05 | PROVIDER PROGRESS NOTE ---
Progress Note Dr. Jimenez Progress Note/Pulmonary and or critical care We appreciated progress of care, Complications, change in diagnosis, and instructions to patient under direct supervision of Dr. Jimenez. Subjective: We note the level of consciousness, bed (chair) position, family presence (if any), level of lethargy, feeling of symptoms, and changes from baseline condition/symptom. The patient is on a NC 2L and tolerates well. He states he is feeling better. He has some dry cough at times, but no wheezing. He does have some tachypnea at high 20s and increased work of breathing with any activities. No fever overnight. Objective: Vital Signs: We reviewed EMR current values for Pulse rate, Blood pressure, Pulse rate, respiratory rate and Pulse oximetry. Also noted other values and trends if present (e.g. I/O, CVP). Vital Signs 09/17/19 12:00 09/17/19 12:02 09/17/19 12:32 Temperature 98.1 F Pulse Rate 76 83 87 Respiratory Rate 27 H 27 H 18 Blood Pressure 145/54 138/47 152/61 O2 Sat by Pulse Oximetry 97 94 L 94 L 09/17/19 13:02 09/17/19 14:04 09/17/19 14:32 Temperature Pulse Rate 78 86 71 Respiratory Rate 16 22 27 H Blood Pressure 147/69 149/43 141/59 O2 Sat by Pulse Oximetry 93 L 94 L 95 09/17/19 15:02 09/17/19 15:32 09/17/19 16:00 Temperature 98.4 F Pulse Rate 70 81 74 Respiratory Rate 29 H 24 18 Blood Pressure 158/59 142/86 152/60 O2 Sat by Pulse Oximetry 97 88 L 99 09/17/19 16:02 09/17/19 16:32 09/17/19 17:02 Temperature Pulse Rate 74 83 75 Respiratory Rate 18 21 29 H Blood Pressure 152/60 156/67 163/52 O2 Sat by Pulse Oximetry 99 97 96 09/17/19 17:32 09/17/19 18:03 09/17/19 18:04 Temperature Pulse Rate 79 82 86 Respiratory Rate 27 H 28 H 27 H Blood Pressure 156/61 164/54 O2 Sat by Pulse Oximetry 95 96 96 09/17/19 18:32 09/17/19 19:00 09/17/19 19:02 Temperature Pulse Rate 82 81 80 Respiratory Rate 21 25 H 23 Blood Pressure 165/65 168/54 O2 Sat by Pulse Oximetry 96 96 97 09/17/19 19:32 09/17/19 20:00 09/17/19 20:02 Temperature 98.2 F 98.2 F Pulse Rate 78 74 74 Respiratory Rate 22 22 19 Blood Pressure 166/72 164/64 164/64 O2 Sat by Pulse Oximetry 96 96 98 09/17/19 20:32 09/17/19 21:00 09/17/19 21:02 Temperature Pulse Rate 88 69 78 Respiratory Rate 20 24 28 H Blood Pressure 165/59 150/64 O2 Sat by Pulse Oximetry 96 96 96 09/17/19 21:20 09/17/19 21:21 09/17/19 21:32 Temperature Pulse Rate 70 87 82 Respiratory Rate 24 16 22 Blood Pressure 150/64 160/78 O2 Sat by Pulse Oximetry 98 97 99 09/17/19 21:33 09/17/19 22:00 09/17/19 22:02 Temperature Pulse Rate 70 78 72 Respiratory Rate 22 24 20 Blood Pressure 162/54 O2 Sat by Pulse Oximetry 99 100 100 09/17/19 22:32 09/17/19 23:00 09/17/19 23:02 Temperature Pulse Rate 74 77 77 Respiratory Rate 24 21 22 Blood Pressure 163/65 165/61 O2 Sat by Pulse Oximetry 100 100 99 09/17/19 23:32 09/18/19 00:00 09/18/19 00:02 Temperature 98.4 F 98.4 F Pulse Rate 76 88 90 Respiratory Rate 22 20 21 Blood Pressure 163/67 170/73 170/73 O2 Sat by Pulse Oximetry 99 100 100 09/18/19 00:32 09/18/19 00:33 09/18/19 01:00 Temperature Pulse Rate 78 80 67 Respiratory Rate 14 28 H 20 Blood Pressure 165/64 O2 Sat by Pulse Oximetry 100 100 99 09/18/19 01:02 09/18/19 01:32 09/18/19 02:00 Temperature Pulse Rate 81 76 75 Respiratory Rate 19 21 16 Blood Pressure 150/90 161/61 O2 Sat by Pulse Oximetry 99 99 100 09/18/19 02:02 09/18/19 02:32 09/18/19 03:00 Temperature Pulse Rate 75 62 69 Respiratory Rate 19 21 19 Blood Pressure 158/66 162/62 O2 Sat by Pulse Oximetry 100 99 98 09/18/19 03:02 09/18/19 03:32 09/18/19 03:33 Temperature Pulse Rate 75 63 65 Respiratory Rate 17 20 20 Blood Pressure 155/63 165/67 O2 Sat by Pulse Oximetry 98 99 99 09/18/19 04:00 09/18/19 04:02 09/18/19 04:32 Temperature 98.4 F Pulse Rate 73 68 70 Respiratory Rate 21 21 24 Blood Pressure 157/53 157/53 162/54 O2 Sat by Pulse Oximetry 97 100 98 09/18/19 04:33 09/18/19 05:00 09/18/19 05:02 Temperature Pulse Rate 93 H 92 H 76 Respiratory Rate 24 18 18 Blood Pressure 163/60 O2 Sat by Pulse Oximetry 100 97 96 09/18/19 05:32 09/18/19 06:00 09/18/19 06:02 Temperature Pulse Rate 74 65 59 L Respiratory Rate 22 20 20 Blood Pressure 143/55 150/51 O2 Sat by Pulse Oximetry 98 96 96 09/18/19 06:32 09/18/19 07:00 09/18/19 07:20 Temperature 98.1 F Pulse Rate 67 68 Respiratory Rate 22 21 Blood Pressure 149/67 151/51 O2 Sat by Pulse Oximetry 98 99 09/18/19 07:32 09/18/19 08:00 09/18/19 08:26 Temperature 97.9 F Pulse Rate 78 72 72 Respiratory Rate 26 H 25 H 25 H Blood Pressure 159/54 151/55 151/55 O2 Sat by Pulse Oximetry 97 97 09/18/19 09:32 09/18/19 09:48 09/18/19 10:00 Temperature Pulse Rate 90 97 H 88 Respiratory Rate 16 22 Blood Pressure 153/59 155/57 O2 Sat by Pulse Oximetry 98 98 09/18/19 10:32 09/18/19 11:22 09/18/19 11:25 Temperature 97.8 F Pulse Rate 84 88 Respiratory Rate 21 20 Blood Pressure 157/55 149/84 O2 Sat by Pulse Oximetry 98 96 Intake & Output 09/17/19 09/18/19 09/18/19 19:59 07:59 19:59 Intake Total 450 / 3100 2650 / 3100 Balance 450 / 3100 2650 / 3100 Intake: Intake, IV Amount 200 / 1800 1600 / 1800 Intake, IVPB 50 / 300 250 / 300 Intake, IV Electrolyte Infusion 800 / 800 Intake, TPN/PPN Amount 200 / 200 Other: Percent of Meal Consumed 0 Number of Incontinent Voids 3 2 Physical Examination: General: Lying in bed with some tachypnea and increased work of breathing with any activities. HEENT: Trachea midline. Mucosa pink and moist. Poor dentition. Chest: Some tachypnea and increased work of breathing with any activities. Symmetrical excursion. Auscultation reveals prolonged expiratory phase and expiratory wheezing on the right side of the lung. CVS: Irregularly irregular with S1 and S2 noted. Abdomen: Soft. Protuberant. Nontender. Bowel sounds normoactive in all 4 quadrants. Extremities: BUE pitting edema 1-2+. No BLE edema. Dorsalis pedis diminished b/l. Neuro: A/Ox 3. Answering simple questions appropriately and following simple commands. Labs and Radiology: Reviewed available labs and radiology values available at time of EMR review. Laboratory Results 09/17/19 09/17/19 09/18/19 15:46 20:17 00:36 WBC RBC Hgb Hct MCV MCH MCHC RDW Std Deviation Plt Count MPV Immature Gran % (Auto) Neut % (Auto) Lymph % (Auto) [place] % (Auto) Eos % (Auto) Baso % (Auto) Immature Gran # (Auto) Neut # (Auto) Lymph # (Auto) [place] # (Auto) Eos # (Auto) Baso # (Auto) PT INR Specimen Type Sample Site pH pCO2 pO2 HCO3 Base Excess Oxyhemoglobin ABG O2 Sat (Calculated) ABG O2 Saturation ABG Carboxyhemoglobin ABG Methemoglobin Wes Test A-a O2 Difference Total Hemoglobin Lactate Blood Gas Modality Vent Mode FiO2 % Inspiratory BiPAP Expiratory BiPAP Sodium Potassium Chloride Carbon Dioxide Anion Gap BUN Creatinine Estimated GFR/1.73 m2 BUN/Creatinine Ratio Glucose POC Glucose 200 H 194 H 226 H Calculated Osmolality Calcium Phosphorus Magnesium Total Bilirubin AST ALT Alkaline Phosphatase Total Protein Albumin Globulin Albumin/Globulin Ratio Blood Type Antibody Screen 09/18/19 09/18/19 09/18/19 04:35 04:58 05:30 WBC RBC Hgb Hct MCV MCH MCHC RDW Std Deviation Plt Count MPV Immature Gran % (Auto) Neut % (Auto) Lymph % (Auto) [place] % (Auto) Eos % (Auto) Baso % (Auto) Immature Gran # (Auto) Neut # (Auto) Lymph # (Auto) [place] # (Auto) Eos # (Auto) Baso # (Auto) PT 15.1 INR 1.17 Specimen Type ARTERIAL Sample Site R RADIAL pH 7.44 pCO2 54 H* pO2 149 H HCO3 33.7 H Base Excess 11.2 H Oxyhemoglobin 96.4 ABG O2 Sat (Calculated) 12.1 L ABG O2 Saturation 98.8 ABG Carboxyhemoglobin 1.40 ABG Methemoglobin 1.0 Wes Test YES A-a O2 Difference 69.0 Total Hemoglobin 8.7 L Lactate 1.60 Blood Gas Modality BI PAP Vent Mode BIPAP FiO2 % 40.0 Inspiratory BiPAP 18.0 Expiratory BiPAP 8.0 Sodium Potassium Chloride Carbon Dioxide Anion Gap BUN Creatinine Estimated GFR/1.73 m2 BUN/Creatinine Ratio Glucose POC Glucose 224 H Calculated Osmolality Calcium Phosphorus Magnesium Total Bilirubin AST ALT Alkaline Phosphatase Total Protein Albumin Globulin Albumin/Globulin Ratio Blood Type Antibody Screen 09/18/19 09/18/19 09/18/19 05:30 08:00 08:17 WBC 12.34 H RBC 2.78 L Hgb 8.3 L Hct 27.2 L MCV 97.8 MCH 29.9 MCHC 30.5 L RDW Std Deviation 17.4 H Plt Count 147 MPV 10.4 Immature Gran % (Auto) 1.7 H Neut % (Auto) 70.7 Lymph % (Auto) 14.2 L [place] % (Auto) 10.2 H Eos % (Auto) 3.0 Baso % (Auto) 0.2 Immature Gran # (Auto) 0.21 H Neut # (Auto) 8.72 H Lymph # (Auto) 1.75 [place] # (Auto) 1.26 H Eos # (Auto) 0.37 Baso # (Auto) 0.03 PT INR Specimen Type Sample Site pH pCO2 pO2 HCO3 Base Excess Oxyhemoglobin ABG O2 Sat (Calculated) ABG O2 Saturation ABG Carboxyhemoglobin ABG Methemoglobin Wes Test A-a O2 Difference Total Hemoglobin Lactate Blood Gas Modality Vent Mode FiO2 % Inspiratory BiPAP Expiratory BiPAP Sodium 153 H Potassium 4.5 Chloride 113 H Carbon Dioxide 32 Anion Gap 8 BUN 54 H Creatinine 1.0 Estimated GFR/1.73 m2 > 60 BUN/Creatinine Ratio 54 Glucose 228 H POC Glucose Calculated Osmolality 326 Calcium 9.0 Phosphorus 2.4 L Magnesium 1.8 Total Bilirubin 0.23 AST 10 ALT 6 L Alkaline Phosphatase 36 Total Protein 5.1 L Albumin 2.5 L Globulin 2.6 Albumin/Globulin Ratio 1.0 Blood Type O POSITIVE Antibody Screen NEGATIVE 09/18/19 09:47 WBC RBC Hgb Hct MCV MCH MCHC RDW Std Deviation Plt Count MPV Immature Gran % (Auto) Neut % (Auto) Lymph % (Auto) [place] % (Auto) Eos % (Auto) Baso % (Auto) Immature Gran # (Auto) Neut # (Auto) Lymph # (Auto) [place] # (Auto) Eos # (Auto) Baso # (Auto) PT INR Specimen Type Sample Site pH pCO2 pO2 HCO3 Base Excess Oxyhemoglobin ABG O2 Sat (Calculated) ABG O2 Saturation ABG Carboxyhemoglobin ABG Methemoglobin Wes Test A-a O2 Difference Total Hemoglobin Lactate Blood Gas Modality Vent Mode FiO2 % Inspiratory BiPAP Expiratory BiPAP Sodium Potassium Chloride Carbon Dioxide Anion Gap BUN Creatinine Estimated GFR/1.73 m2 BUN/Creatinine Ratio Glucose POC Glucose 120 H Calculated Osmolality Calcium Phosphorus Magnesium Total Bilirubin AST ALT Alkaline Phosphatase Total Protein Albumin Globulin Albumin/Globulin Ratio Blood Type Antibody Screen Dr. Jimenez evaluated and additional note below. Evaluation time in minutes: 33 minutes. Assessment: Acute hypoxemic hypercapnic respiratory failure. Left lower lobe pleural thickening vs. loculated effusion. Acute on chronic congestive heart failure. Pneumonia, left lower lobe. Acute on chronic kidney disease. Improved. Atrial fibrillation. On Warfarin. Melena with GI bleed. Dr. Vincent on board. Endoscopy today. Electrolyte abnormality. Plan: Continue current treatment and supportive care per admitting and other teams on the case. Antibiotics including azithromycin and ceftriaxone, bronchodilators, and diuresis. Appropriate DVT and GI prophylaxis. Input was appreciated from Admitting MD and other teams on the case. See additional notes by Dr. Jimenez.
[2019-09-18] MEDS ORDERED: VERSED ONE (08:47)
[2019-09-18] MEDS ORDERED: KETAMINE ONE (08:51)
[2019-09-18] MEDS ORDERED: ROBINUL ONE (08:52)
[2019-09-18 08:56] LABS: BASO# 0.03 X1000 (0.0-0.2); BASO% 0.2 % (0.0-0.8); EOS# 0.37 X1000 (0.0-0.7); HEMATOCRIT 27.2 % (42.0-52.0); HEMOGLOBIN 8.3 g/dL (14.0-18.0); IMM GRAN# 0.21 X1000 (0.0-0.04); IMM GRAN% 1.7 % (0.0-0.5); LYMPH# 1.75 X1000 (1.2-3.4); LYMPH% 14.2 % (20.5-51.1); MCH 29.9 PG (27-31); MCHC 30.5 g/dL (33-37); MCV 97.8 FL (81-99); MONO# 1.26 X1000 (0.11-0.59); MONO% 10.2 % (1.7-9.3); MPV 10.4 FL (7.4-10.4); NEUT# 8.72 X1000 (1.4-6.5); NEUT% 70.7 % (42.2-75.2); PLT 147 X1000 (130-400); RBC 2.78 XMIL (4.7-6.1); RDW 17.4 % (11.5-14.5); WBC 12.34 X1000 (4.8-10.8)
--- NOTE | 2019-09-18 09:04 | PROVIDER PROGRESS NOTE ---
Progress Note Pulmonary additional note: I have seen and examined the case, reviewed the EMR, labs, latest images and other medical teams notes. Also reviewed the FIRST BEATER notes and signed necessary form(s). I have noted changes in condition if any from yesterday and did orders. Please see also signed progress sheet. Today he has satisfactory oxygenation with Bipap. He received FFP over weekend. Prognosis: Guarded for now. I reviewed latest notes from Dr. Sheikh and Dr. Berger. Respiratory failure is improving with Bipap. CHF, diastolic and responding to diuresis. Pneumonia. Improving ARF. AV repair on anticoagulation (now held) Afib. GIB, GI is seeing. Will consider ordering CT chest. I asked staff physical therapist about condition changes and if they have any needs in regard to today conditions. CT reviewed and showed pneumonia, CHF and pleural plaques. 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 Discussed with and patient are bedside. I spent 31 minutes in this process.
--- NOTE | 2019-09-18 09:18 | ENDOSCOPY OPERATIVE NOTE ---
[facility] ENDOSCOPY OPERATIVE NOTE , EGD PROCEDURE REPORT EXAM DATE: 09/18/2019 PATIENT NAME: Norman Verdugo MR#: [id number] BIRTHDATE: 1945 ATTENDING: Tavares Vincent MD STATUS: inpatient ONLINE EDUCATION MANAGER: INDICATIONS: The patient is a 74 yr old male here for an EGD due to Anemia, GI Bleed, melena, respir atory failure, CHF, Pneumonia, A fib, BPH, DM, Pulmonary Hyptertension, Aortic stenosis s/p Valve replacement. PROCEDURE PERFORMED: EGD, diagnostic MEDICATIONS: Per Anesthesia ESTIMATED BLOOD LOSS: None CONSENT: The patient understands the risks and benefits of the procedure and understands that these r isks include, but are not limited to: sedation, allergic reaction, infection, perforation and/or bleeding. Alternative means of evaluation and treatment include, among others: physical exam, x-rays, and/or surgical intervention. The patient elects to proceed with this endoscopic procedure. DESCRIPTION OF PROCEDURE: During pre-op preparation period all mechanical and medical equipment was c hecked for proper function. Hand hygiene and appropriate measures for infection prevention was taken. After the risks, benefits and alternatives of the procedure were thoroughly explained, Informed consent was verified, confirmed and timeout was successfully executed by the treatment team. The patient was anesthetized with topical anesthesia and the [id number] ([id number]) endoscope was introduced through the mouth and advanced to the second portion of the duoden um. Retroflexion was performed in the stomach and revealed no abnormalities. The gastroscope was then slowly withdraw n and removed. The patient's toleration of the procedure was fair. ESOPHAGUS: Reflux esophagitis was found at the gastroesophageal junction and in the distal esophagus. Esophagitis was LA Class B: One or more mucosal breaks > 5mm, but without continuity across mucosal folds. STOMACH: Two non-bleeding and deep ulcers ranging between 5-9, 15-18 mm in size were found in the pre pyloric region of the stomach and gastric antrum. Bile was noted in the stomach. DUODENUM: The duodenal mucosa showed no abnormalities in the 2nd part of the duodenum and 1st part du odenum. Mild duodenal inflammation was found. ADVERSE EVENTS: There were no complications. IMPRESSIONS: 1. Reflux esophagitis at the gastroesophageal junction and in the distal esophagus 2. Two ranging between 5-9mm in size ulcers were found in the prepyloric region of the stomach and g astric antrum 3. Bile was noted in the stomach 4. The duodenal mucosa showed no abnormalities in the 2nd part of the duodenum and 1st part duodenum 5. Duodenal inflammation was found RECOMMENDATIONS: PPI BID for 90 days Carafate 1g every 6 hours for 6 weeks Repeat EGD in 3 months GERD lifetsyle changes Avoid NSAIDs Watch Hct and Transfuse as needed Start Iron C BID and MVI QD for 90 days REPEAT EXAM: Return in 3 months for EGD. Gastric ulcer follow up Tavares Vincent MD eSigned: Tavares Vincent MD 09/18/2019 9:17 AM CC: CPT CODES: 51788 Upper gastrointestinal endoscopy including esophagus, stomach, and either the du odenum and/or jejunum as appropriate; diagnostic, with or without collection of specimen(s) by brushing or washing (separate procedure) ICD CODES: The ICD and CPT codes recommended by this software are interpretations from the data that the [facility] staff has captured with the software. The verification of the translation of this report to the ICD and CPT co yusuf and modifiers is the sole responsibility of the health care institution and practicing physician where this report was generated. [employer] will not be held responsible for the validity of the ICD and CPT codes i ncluded on this report. [employer] assumes no liability for data contained or not contained herein. CPT is a registered tra demark of the [employer]. PATIENT NAME: Norman Verdugo MR#: [id number]
[2019-09-18] MEDS: CARDIZEM CD PO SCH (09:48)
[2019-09-18] MEDS: FLOMAX PO SCH ×2 (09:48→20:16)
[2019-09-18] MEDS: KLOR-CON PO SCH (09:48)
[2019-09-18] MEDS: LANOXIN PO SCH (09:48)
[2019-09-18] MEDS: ROCEPHIN 1 GM in NS 50 ML IV SCH (09:49)
[2019-09-18] MEDS: LASIX IV SCH (09:50)
[2019-09-18] MEDS: ELDERTONIC PO SCH (09:53)
[2019-09-18] MEDS: LANTUS INSULIN SUBQ SCH (09:55)
--- NOTE | 2019-09-18 12:02 | Diag Imaging Result Doc PS360 ---
CT THORAX W/O CONTRAST - 09/18/2019 INDICATION: SOB COMPARISON: Several previous chest x-rays FINDINGS: There are extensive bilateral calcified pleural plaques. There are trace pleural effusions versus pleural thickening. On the left side in particular laterally, this is probably mostly pleural thickening as it is stable from several prior exams. There is a stable aortic valve replacement. There is mild cardiomegaly. There is some patchy infiltrate bilaterally involving all lobes. There is probably also some mild interstitial pulmonary edema with some hazy groundglass opacity and thickened interlobular septae in the lung bases. There is a benign fatty nodule of the left adrenal gland measuring 5 cm. This is compatible with a benign adrenal myelolipoma. No adenopathy. There are moderate degenerative changes of the spine. No acute or suspicious bony lesion. IMPRESSION: 1. 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 2. Mild congestive heart failure. 3. Scattered infiltrates bilaterally are indeterminate, either pulmonary scarring, edema, or bronchopneumonia. This exam was performed using automated exposure control, adjustment of mA or kV according to patient size, and/or use of iterative reconstruction technique Electronically signed by Quincy Villa 09/18/2019 12:00 PM
--- NOTE | 2019-09-18 16:57 | PROGRESS NOTE ---
DATE: 09/18/2019 SUBJECTIVE: Mr. Verdugo is feeling much better. He is tolerating drinking fluids. They found some ulcers on EGD. His breathing is comfortable. OBJECTIVE: Vital Signs: Temperature 98.1 degrees, pulse 70, respirations 16, blood pressure 142/53. HEENT: Pupils are equal. Neck: No distended neck veins. Respiratory: Lungs are clear anterolateral. Cardiovascular: Regular rate without murmur or S3. Urine output: 5700 mL. DIAGNOSTIC DATA: CT of his chest done today, significant calcified pleural plaques indicating previous asbestos exposure. Mild congestive heart failure. Scattered infiltrates bilaterally and intermediate either pulmonary scarring, edema, edema, or bronchial pneumonia. ASSESSMENT AND PLAN: 1. Respiratory failure, requiring BiPAP. Congestive heart failure, diastolic, responding to diuresis. Pneumonia, improving. 2. Acute renal injury which is improved. 3. Arteriovenous repair on auto anticoagulation which has been held because of upper GI bleeding. 4. Atrial fibrillation, rate is controlled. 5. Upper gastrointestinal bleed, found some gastric ulcers. Hematocrit and hemoglobin looked stable. 6. CT of the chest shows significant calcified pleural plaques indicating previous asbestos exposure. Mild congestive heart failure with scattered infiltrates bilaterally intermediate either pulmonary scarring, edema and possible residual bronchial pneumonia. 7. Esophagogastroduodenoscopy found some reflux esophagitis at the esophageal junction and distal esophagus esophagitis LA class B, 1 or more mucosal breaks greater than 5 mm. Had 2 nonbleeding deep ulcers ranging 5 to 9 and 15 to 18 mm in size were found in the pre-pyloric region of the stomach and gastric antrum, duodenal mucosa without any abnormalities. PLAN: Continue his proton pump inhibitors, he has been doing physical therapy to try and improve his strength. REVIEW OF ORDERS: Getting Clinimix at 52 mL an hour. He is on digoxin 250 mcg p.o. daily, Cardizem CD 240 mg a day, Lasix 40 mg a day, carbonyl ascorbic acid 1 b.i.d., multivitamin 5 mL daily, Protonix 40 mg IV every 12 hours. He is on ceftriaxone 1 g q.24 hours, Carafate 1 g q.6 hours, Flomax 0.4 mg b.i.d., azithromycin 500 mg IV q.24 hours, his Coumadin is started back at 5 mg at bedtime. His Pro time is 15 today. cc: Wes Sheikh MD
[2019-09-18] MEDS: ICAR-C PO SCH (20:16)
[2019-09-19] MEDS: ZITHROMAX 500 MG/NS 500 MG/250 ML IVPB IV SCH (01:00)
[2019-09-19] MEDS: HUMALOG SUBQ SCH ×6 (01:30→20:37)
[2019-09-19] MEDS: CLINIMIX E 4.25%-5% SOLUTION 1,000 ML IV SCH (02:13)
[2019-09-19] MEDS: CARAFATE LIQUID PO SCH ×4 (02:15→20:37)
[2019-09-19] MEDS: PROTONIX IV SCH ×2 (02:15→13:35)
[2019-09-19] MEDS: DUONEB (A & A) INH SCH ×4 (03:35→21:40)
[2019-09-19 04:48] LABS: ALLEN TEST YES; BE 8.1 mmoll (-3.0-3.0); BLOOD TYPE ARTERIAL; HCO3-(ACT) 31.2 mmoll (20.0-26.0); METHB 1.2 % (0.0-1.5); O2(CT) 19.1 mL/dL (15.0-23.0); O2HB 95.2 % (95.0-99.0); PO2(98.6) 107 mmHg (60-100); SAMPLE BLOOD; SAO2 98.3 % (95.0-100.0); SRATE 14 BPM; THB 14.2 g/dL (11.5-17.4); pH(98.6) 7.38 (7.35-7.45)
[2019-09-19 04:49] LABS: MODALITY BI PAP; PCO2(98.6) 60 mmHg (35-45)
[2019-09-19 07:19] LABS: BASO# 0.02 X1000 (0.0-0.2); BASO% 0.2 % (0.0-0.8); EOS# 0.41 X1000 (0.0-0.7); HEMATOCRIT 26.2 % (42.0-52.0); HEMOGLOBIN 7.8 g/dL (14.0-18.0); IMM GRAN# 0.16 X1000 (0.0-0.04); IMM GRAN% 1.6 % (0.0-0.5); LYMPH# 1.38 X1000 (1.2-3.4); LYMPH% 13.4 % (20.5-51.1); MCH 29.3 PG (27-31); MCHC 29.8 g/dL (33-37); MCV 98.5 FL (81-99); MONO# 0.99 X1000 (0.11-0.59); MONO% 9.6 % (1.7-9.3); MPV 11.1 FL (7.4-10.4); NEUT# 7.31 X1000 (1.4-6.5); NEUT% 71.2 % (42.2-75.2); PLT 140 X1000 (130-400); RBC 2.66 XMIL (4.7-6.1); RDW 17.2 % (11.5-14.5); WBC 10.27 X1000 (4.8-10.8)
[2019-09-19 07:21] LABS: AGAP 6; ALBUMIN 2.5 g/dL (3.5-5.0); ALKALINE PHOSPHATASE 39 U/L (32-122); BUN 44 mg/dL (8-22); CALCIUM 8.5 mg/dL (8.8-10.2); CHLORIDE 106 mmol/L (98-107); COSMO 300; ESTIMATED GFR > 60; GLUCOSE 139 mg/dL (70-104); GOT 11 U/L (10-34); GPT 7 U/L (10-44); POTASSIUM 4.7 mmol/L (3.5-5.1); SODIUM 144 mmol/L (136-145); TCO2 32 mmol/L (25-35); TOTAL BILIRUBIN 0.29 mg/dL (0.20-1.00); TOTAL PROTEIN 5.1 g/dL (6.3-8.3)
[2019-09-19 08:27] LABS: LYMPHS 22 % (21-51); MONO 2 % (1-9); SEGS 76 % (42-75)
[2019-09-19] MEDS: ELDERTONIC PO SCH (08:54)
[2019-09-19] MEDS: LASIX IV SCH (08:55)
[2019-09-19] MEDS: ROCEPHIN 1 GM in NS 50 ML IV SCH (08:55)
[2019-09-19] MEDS: LANOXIN PO SCH (08:56)
[2019-09-19] MEDS: ICAR-C PO SCH ×2 (08:56→20:37)
[2019-09-19] MEDS: KLOR-CON PO SCH (08:56)
[2019-09-19] MEDS: FLOMAX PO SCH ×2 (08:56→20:37)
[2019-09-19] MEDS: CARDIZEM CD PO SCH (08:56)
[2019-09-19] MEDS: LANTUS INSULIN SUBQ SCH (08:56)
--- NOTE | 2019-09-19 09:41 | PROVIDER PROGRESS NOTE ---
Progress Note Dr. Jimenez Progress Note/Pulmonary and or critical care We appreciated progress of care, Complications, change in diagnosis, and instructions to patient under direct supervision of Dr. Jimenez. Subjective: We note the level of consciousness, bed (chair) position, family presence (if any), level of lethargy, feeling of symptoms, and changes from baseline condition/symptom. The patient is on a NC 2.5L and tolerates well. He states he is feeling ok. He apparently has more dry cough this am with some mild chest congestion. He still has tachypnea at 20s and increased work of breathing with any activities. No fever overnight. Hgb dropped this am to 7.8 from 8.3. Objective: Vital Signs: We reviewed EMR current values for Pulse rate, Blood pressure, Pulse rate, respiratory rate and Pulse oximetry. Also noted other values and trends if present (e.g. I/O, CVP). Vital Signs 09/18/19 14:00 09/18/19 14:33 09/18/19 15:00 Temperature Pulse Rate 71 69 64 Respiratory Rate 23 17 22 Blood Pressure 132/73 157/53 142/53 O2 Sat by Pulse Oximetry 98 98 99 09/18/19 15:16 09/18/19 15:51 09/18/19 16:00 Temperature 98.1 F Pulse Rate 70 64 Respiratory Rate 16 22 Blood Pressure 139/52 O2 Sat by Pulse Oximetry 99 97 09/18/19 17:00 09/18/19 18:02 09/18/19 18:03 Temperature Pulse Rate 77 64 68 Respiratory Rate 24 23 24 Blood Pressure 156/59 137/51 O2 Sat by Pulse Oximetry 98 97 97 09/18/19 19:00 09/18/19 19:02 09/18/19 19:03 Temperature Pulse Rate 72 78 73 Respiratory Rate 32 H 20 21 Blood Pressure 133/54 O2 Sat by Pulse Oximetry 97 97 96 09/18/19 20:00 09/18/19 20:03 09/18/19 20:04 Temperature 98.2 F Pulse Rate 63 57 L 69 Respiratory Rate 25 H 26 H 23 Blood Pressure 162/50 162/50 O2 Sat by Pulse Oximetry 96 94 L 95 09/18/19 21:00 09/18/19 21:02 09/18/19 21:41 Temperature Pulse Rate 77 74 57 L Respiratory Rate 25 H 27 H 24 Blood Pressure 166/68 O2 Sat by Pulse Oximetry 98 98 99 09/18/19 22:00 09/18/19 22:02 09/18/19 23:00 Temperature Pulse Rate 77 75 69 Respiratory Rate 25 H 26 H 25 H Blood Pressure 166/62 O2 Sat by Pulse Oximetry 97 98 95 09/18/19 23:02 09/19/19 00:00 09/19/19 00:02 Temperature 98.0 F 98.0 F Pulse Rate 71 62 67 Respiratory Rate 27 H 21 24 Blood Pressure 174/55 147/58 145/56 O2 Sat by Pulse Oximetry 95 98 98 09/19/19 01:00 09/19/19 01:02 09/19/19 02:00 Temperature Pulse Rate 65 55 L 61 Respiratory Rate 23 24 20 Blood Pressure 142/59 O2 Sat by Pulse Oximetry 99 99 100 09/19/19 02:02 09/19/19 02:03 09/19/19 03:00 Temperature Pulse Rate 66 58 L 63 Respiratory Rate 24 32 H 22 Blood Pressure 147/58 O2 Sat by Pulse Oximetry 100 100 98 09/19/19 03:02 09/19/19 04:00 09/19/19 04:02 Temperature 98.2 F 98.2 F Pulse Rate 64 66 64 Respiratory Rate 22 24 20 Blood Pressure 142/57 158/57 158/57 O2 Sat by Pulse Oximetry 99 100 100 09/19/19 04:03 09/19/19 05:00 09/19/19 05:02 Temperature Pulse Rate 68 62 60 Respiratory Rate 24 25 H 21 Blood Pressure 142/62 O2 Sat by Pulse Oximetry 99 100 100 09/19/19 06:00 09/19/19 06:02 09/19/19 06:50 Temperature Pulse Rate 61 67 70 Respiratory Rate 19 20 23 Blood Pressure 141/62 141/62 O2 Sat by Pulse Oximetry 100 99 100 09/19/19 07:02 09/19/19 08:00 09/19/19 08:02 Temperature 98.1 F Pulse Rate 65 74 74 Respiratory Rate 23 24 24 Blood Pressure 148/51 156/69 156/69 O2 Sat by Pulse Oximetry 100 96 96 09/19/19 08:56 09/19/19 09:02 09/19/19 10:02 Temperature Pulse Rate 69 78 75 Respiratory Rate 20 27 H Blood Pressure 160/57 153/59 O2 Sat by Pulse Oximetry 98 98 09/19/19 11:02 09/19/19 11:35 09/19/19 12:00 Temperature 98.8 F Pulse Rate 61 63 Respiratory Rate 26 H 16 Blood Pressure 157/58 114/56 O2 Sat by Pulse Oximetry 98 98 09/19/19 12:03 Temperature Pulse Rate Respiratory Rate Blood Pressure 114/56 O2 Sat by Pulse Oximetry Intake & Output 09/18/19 09/19/19 09/19/19 19:59 07:59 19:59 Intake Total 1170 / 2700 1530 / 2700 Balance 1170 / 2700 1530 / 2700 Intake: Intake, IVPB 50 / 300 250 / 300 Intake, Other Amount 400 / 400 Intake, IV Electrolyte Infusion 800 / 800 Intake, Oral Amount 720 / 1200 480 / 1200 Other: Percent of Meal Consumed 100% Number of Incontinent Voids 2 2 Physical Examination: General: Lying in bed with mild tachypnea and increased work of breathing with activities. HEENT: Trachea midline. Mucosa pink and moist. Poor dentition. Chest: Mild tachypneic. Increased work of breathing with activities. Symmetrical excursion. Auscultation reveals rhonchi bilaterally which is changed by coughed, but not cleared up and coarse breathing sounds bilaterally. CVS: Irregularly irregular with S1 and S2 noted. Abdomen: Soft. Protuberant. Nontender. Bowel sounds normoactive in all 4 quadrants. Extremities: BUE and BLE pitting edema 1-2+. Trace BLE edema. Dorsalis pedis diminished b/l. Neuro: A/Ox 3. Speech fluent. Follow commands. Weakness present. Labs and Radiology: Reviewed available labs and radiology values available at time of EMR review. Laboratory Results 09/18/19 09/18/19 09/19/19 15:44 19:45 02:22 WBC RBC Hgb Hct MCV MCH MCHC RDW Std Deviation Plt Count MPV Immature Gran % (Auto) Neut % (Auto) Lymph % (Auto) [place] % (Auto) Eos % (Auto) Baso % (Auto) Immature Gran # (Auto) Neut # (Auto) Lymph # (Auto) [place] # (Auto) Eos # (Auto) Baso # (Auto) Segmented Neutrophils Lymphocytes Monocytes Specimen Type Sample Site pH pCO2 pO2 HCO3 Base Excess Oxyhemoglobin ABG O2 Sat (Calculated) ABG O2 Saturation ABG Carboxyhemoglobin ABG Methemoglobin Wes Test A-a O2 Difference Total Hemoglobin Lactate Blood Gas Modality Spontaneous Rate FiO2 % Inspiratory BiPAP Expiratory BiPAP Sodium Potassium Chloride Carbon Dioxide Anion Gap BUN Creatinine Estimated GFR/1.73 m2 BUN/Creatinine Ratio Glucose POC Glucose 148 H 225 H D 129 H Calculated Osmolality Calcium Total Bilirubin AST ALT Alkaline Phosphatase Total Protein Albumin Globulin Albumin/Globulin Ratio 09/19/19 09/19/19 09/19/19 04:36 04:38 05:30 WBC RBC Hgb Hct MCV MCH MCHC RDW Std Deviation Plt Count MPV Immature Gran % (Auto) Neut % (Auto) Lymph % (Auto) [place] % (Auto) Eos % (Auto) Baso % (Auto) Immature Gran # (Auto) Neut # (Auto) Lymph # (Auto) [place] # (Auto) Eos # (Auto) Baso # (Auto) Segmented Neutrophils Lymphocytes Monocytes Specimen Type ARTERIAL Sample Site R RADIAL pH 7.38 pCO2 60 H* pO2 107 H HCO3 31.2 H Base Excess 8.1 H Oxyhemoglobin 95.2 ABG O2 Sat (Calculated) 19.1 ABG O2 Saturation 98.3 ABG Carboxyhemoglobin 2.00 ABG Methemoglobin 1.2 Wes Test YES A-a O2 Difference 103.0 Total Hemoglobin 14.2 Lactate 0.90 Blood Gas Modality BI PAP Spontaneous Rate 14 FiO2 % 40.0 Inspiratory BiPAP 18.0 Expiratory BiPAP 8.0 Sodium 144 Potassium 4.7 Chloride 106 Carbon Dioxide 32 Anion Gap 6 BUN 44 H Creatinine 1.0 Estimated GFR/1.73 m2 > 60 BUN/Creatinine Ratio 44 Glucose 139 H POC Glucose 130 H Calculated Osmolality 300 Calcium 8.5 L Total Bilirubin 0.29 AST 11 ALT 7 L Alkaline Phosphatase 39 Total Protein 5.1 L Albumin 2.5 L Globulin 2.6 Albumin/Globulin Ratio 1.0 09/19/19 09/19/19 09/19/19 05:30 07:34 11:53 WBC 10.27 RBC 2.66 L Hgb 7.8 L Hct 26.2 L MCV 98.5 MCH 29.3 MCHC 29.8 L RDW Std Deviation 17.2 H Plt Count 140 MPV 11.1 H Immature Gran % (Auto) 1.6 H Neut % (Auto) 71.2 Lymph % (Auto) 13.4 L [place] % (Auto) 9.6 H Eos % (Auto) 4.0 Baso % (Auto) 0.2 Immature Gran # (Auto) 0.16 H Neut # (Auto) 7.31 H Lymph # (Auto) 1.38 [place] # (Auto) 0.99 H Eos # (Auto) 0.41 Baso # (Auto) 0.02 Segmented Neutrophils 76 H Lymphocytes 22 Monocytes 2 Specimen Type Sample Site pH pCO2 pO2 HCO3 Base Excess Oxyhemoglobin ABG O2 Sat (Calculated) ABG O2 Saturation ABG Carboxyhemoglobin ABG Methemoglobin Wes Test A-a O2 Difference Total Hemoglobin Lactate Blood Gas Modality Spontaneous Rate FiO2 % Inspiratory BiPAP Expiratory BiPAP Sodium Potassium Chloride Carbon Dioxide Anion Gap BUN Creatinine Estimated GFR/1.73 m2 BUN/Creatinine Ratio Glucose POC Glucose 136 H 173 H Calculated Osmolality Calcium Total Bilirubin AST ALT Alkaline Phosphatase Total Protein Albumin Globulin Albumin/Globulin Ratio Dr. Jimenez evaluated and additional note below. Evaluation time in minutes: 31 minutes. Assessment: Acute hypoxemic hypercapnic respiratory failure. Significant calcified pleural plaques with indeterminate scattered bilateral infiltrates. CT on 09/18/19. Acute on chronic congestive heart failure. Pneumonia. Acute on chronic kidney disease. Improved. Atrial fibrillation. On Warfarin. GI bleed with reflux esophagitis and gastric ulcers. Dr. Vincent on board. EGD on 09/18/19. Benign adrenal myelolipoma on the left adrenal gland, measuring 5 cm. Plan: Continue current treatment and supportive care per admitting and other teams on the case. Antibiotics including azithromycin and ceftriaxone, bronchodilators, and diuresis. Start mucomyst. Appropriate DVT and GI prophylaxis. Input was appreciated from Admitting MD and other teams on the case. See additional notes by Dr. Jimenez.
--- NOTE | 2019-09-19 10:11 | PROVIDER PROGRESS NOTE ---
Progress Note Pulmonary additional note: I have seen and examined the case, reviewed the EMR, labs, latest images and other medical teams notes. Also reviewed the [employer] notes and signed necessary form(s). I have noted changes in condition if any from yesterday and did orders. Please see also signed progress sheet. Today he is alert and communicative satisfactory oxygenation with nasal cannula alternating with Bipap. Status post EGD, report appreciated. Prognosis: Guarded for now. I reviewed latest notes from Dr. Rivera and Dr. Berger. He maybe transferred to [facility]. Respiratory failure compensating with nasal cannula and Bipap. CHF, diastolic and responding to diuresis. Pneumonia. Improving ARF. AV repair on anticoagulation (now held) Afib. GIB, GI is seeing post EGD. Asbestosis. I asked staff readiness officer about condition changes and if they have any needs in regard to today conditions. I spent 33 minutes in this process.
[2019-09-19] MEDS: MUCOMYST 20% INH SCH ×2 (11:35→21:40)
--- NOTE | 2019-09-19 11:50 | GASTROENTEROLOGY PROGRESS NOTE ---
DATE: 09/19/2019 SUBJECTIVE: Mr. Verdugo is a 74-year-old, male resting in bed. Family at the bedside. The patient mentioned that he was feeling better today. OBJECTIVE: Vital Signs: Temperature 98.1 degrees, pulse 75, respirations 27, blood pressure 153/59, oxygen saturation 98% on 2 L nasal cannula. The patient's weight is 240 pounds. BMI is 33.5 kg/m2. General: He is alert, oriented x2, and in no acute distress. HEENT: Pale conjunctivae. No icterus. PERRL. Neck: Supple. Lungs: rhonchi heard in the upper anterior lobes. Cardiovascular: Patient is tachycardic. Abdomen: Obese, soft, nontender. Active bowel sounds heard in all 4 quadrants. Extremities: No clubbing, no cyanosis. Edema in the lower extremities. Neurologic: Alert, oriented x2. Labs: WBCs are 10.27, RBCs 2.66, hemoglobin 7.8, hematocrit 26.2, platelet count is 140,000. Sodium 144, potassium 4.7, chloride 106, carbon dioxide 32, anion gap 6, BUN 44, creatinine 1.0, glucose 139, calcium is 8.5. Total bilirubin 0.29, AST is 11, ALT 7, alkaline phosphatase 39. The patient's chest x-ray yesterday showed significant calcified pleural plaques, indicating previous asbestos exposure. Mild congestive heart failure. Scattered infiltrates bilaterally are indeterminate, either pulmonary scarring, edema, or bronchopneumonia. IMPRESSION AND PLAN: - Bleeding gastric ulcers - Esophagitis - Duodenitis - Acute blood loss anemia - Pneumonia - AFIB - Coagulopathy - CKD - COPD PLAN: Mr. Verdugo is a 74-year-old, male with the h/o of prosthetic aortic valve, GI is following him for his GI bleed and anemia. An EGD was done yesterday and the findings were reflux esophagitis at the gastroesophageal junction and in the distal esophagus. Two ulcers ranging between 5 to 9 mm in size were found in the peripyloric region of the stomach and the gastric antrum. Bile was noted in the stomach. The duodenal mucosa showed no abnormalities in the second part of the duodenum and the first part of the duodenum. Duodenal inflammation was found. The patient is on PPIs twice a day and will continue it for 90 days. He is on Carafate 1 g every 6 hours and will continue it for 6 weeks. The patient needs to have a repeat EGD in 3 months. The patient is advised to avoid NSAIDs. The patient is also on an iron tablet twice a day and multivitamins daily and continue it for 3 months. We have advanced his diet to diabetic diet. We will continue to monitor the patient's hemoglobin and hematocrit. This plan was discussed with Dr. Cam. Please call us for any further questions or concerns. Dictated by STEW Huggins for Jose D Cam MD Physician Attestation I have seen and examined the patient. I have discussed and reviewed the note by Cha MATHIAS and agree with findings and plan as documented. [facility]
--- NOTE | 2019-09-19 12:15 | PROGRESS NOTE ---
DATE: 09/19/2019 SUBJECTIVE: This morning, Mr. Verdugo refers to be doing well. He has been evaluated already by GI and they have started him on a regular diet. He says he has not had any bowel movement. OBJECTIVE: General: Mr. Verdugo is a 74-year-old elderly male. He is obese with BMI of 33. He is in bed. No distress. Mucosa is pink and moist. Anicteric. Acyanotic. Neck: Supple. Chest: Good air entry bilateral. There was no crepitations. No rhonchi. Cardiovascular: Regular rate and rhythm. Abdomen: Soft, distended, but nontender. Bowel sounds present. Extremities: No pedal edema. Central Nervous System: Patient is awake, alert, and oriented. LABORATORY DATA: WBC is 10.27, hemoglobin is 7.8, platelet count of 140,000 chemistry is also reviewed, unremarkable. The patient's pCO2 is 60. ASSESSMENT: 1. Acute hypoxemic with acute on chronic hypercarbic respiratory failure. 2. History of atrial fibrillation currently rate controlled. 3. Gastrointestinal bleed. The patient is status post esophagogastroduodenoscopy which revealed nonbleeding gastric ulcers. However, the patient was also on aspirin and Coumadin, both of which have been discontinued. 4. Calcified pleural plaques indicative of asbestosis exposure. Patient is aware. He will need to follow up with Pulmonology. 5. Bronchopneumonia. Patient is on antimicrobial coverage. 6. Status post aortic bioprosthetic valve replacement. 7. Diabetes mellitus with presenting A1c of 8.0. Patient is on insulin regimen. In general, I think Mr. Verdugo is doing well. He is not showing anymore signs of any bleed. Hemoglobin has improved. He is status post 6 PRBC and 2 FFP transfusions. We are going to transfer him from the ICU to [facility] and get physical therapy to be more active. cc: Jesús Rivera MD
[2019-09-19] MEDS ORDERED: NS 10 ML IV PRN (13:28)
[2019-09-19] MEDS ORDERED: SODIUM CHLORIDE 0.9% 10 ML ONE (13:31)
[2019-09-20] MEDS: CARAFATE LIQUID PO SCH ×5 (00:49→20:23)
[2019-09-20] MEDS: ZITHROMAX 500 MG/NS 500 MG/250 ML IVPB IV SCH ×2 (00:49→23:23)
[2019-09-20] MEDS: HUMALOG SUBQ SCH ×6 (00:50→22:45)
[2019-09-20] MEDS: DUONEB (A & A) INH SCH ×4 (03:14→21:10)
[2019-09-20 04:46] LABS: ALLEN TEST YES; BE 6.7 mmoll (-3.0-3.0); BLOOD TYPE ARTERIAL; METHB 1.1 % (0.0-1.5); O2(CT) 17.3 mL/dL (15.0-23.0); O2HB 91.7 % (95.0-99.0); PO2(98.6) 66 mmHg (60-100); SAMPLE BLOOD; SAO2 95.1 % (95.0-100.0); THB 13.4 g/dL (11.5-17.4); pH(98.6) 7.39 (7.35-7.45)
[2019-09-20 04:49] LABS: MODALITY CANNULA
[2019-09-20 04:50] LABS: PCO2(98.6) 55 mmHg (35-45)
[2019-09-20] MEDS: PROTONIX IV SCH ×2 (05:12→18:02)
[2019-09-20 06:23] LABS: HEMATOCRIT 26.2 % (42.0-52.0); MCH 30.8 PG (27-31); MCHC 30.5 g/dL (33-37); MCV 100.8 FL (81-99); MPV 10.5 FL (7.4-10.4); RBC 2.6 XMIL (4.7-6.1); RDW 17.5 % (11.5-14.5); WBC 10.73 X1000 (4.8-10.8)
[2019-09-20 06:36] LABS: AGAP 7; BUN 39 mg/dL (8-22); CALCIUM 8.7 mg/dL (8.8-10.2); CHLORIDE 105 mmol/L (98-107); COSMO 297; CREATININE 1.1 mg/dL (0.7-1.2); ESTIMATED GFR > 60; GLUCOSE 119 mg/dL (70-104); POTASSIUM 4.4 mmol/L (3.5-5.1); SODIUM 144 mmol/L (136-145); TCO2 32 mmol/L (25-35)
[2019-09-20] MEDS ORDERED: SODIUM CHLORIDE 0.9% 10 ML ONE ×2 (08:36→13:03)
[2019-09-20] MEDS: LANOXIN PO SCH (08:57)
[2019-09-20] MEDS: ELDERTONIC PO SCH (08:57)
[2019-09-20] MEDS: ICAR-C PO SCH ×2 (08:57→20:23)
[2019-09-20] MEDS: LANTUS INSULIN SUBQ SCH (08:57)
[2019-09-20] MEDS: LASIX IV SCH (08:57)
[2019-09-20] MEDS: FLOMAX PO SCH ×2 (08:57→20:23)
[2019-09-20] MEDS: ROCEPHIN 1 GM in NS 50 ML IV SCH (08:57)
[2019-09-20] MEDS: CARDIZEM CD PO SCH (08:57)
[2019-09-20] MEDS: KLOR-CON PO SCH (08:57)
[2019-09-20] MEDS: MUCOMYST 20% INH SCH ×2 (09:10→21:10)
--- NOTE | 2019-09-20 10:08 | PROVIDER PROGRESS NOTE ---
Progress Note Pulmonary additional note: I have seen and examined the case, reviewed the EMR, labs, latest images and other medical teams notes. Also reviewed the BOOSTER PUMP OILER notes and signed necessary form(s). I have noted changes in condition if any from yesterday and did orders. Please see also signed progress sheet. Prognosis: Guarded for now. Since yesterday he is alert and keeps requesting to go home and his disagrees with him. satisfactory oxygenation with nasal cannula alternating with Bipap. I reviewed latest notes from Dr. Rivera and Dr. Berger. He maybe transferred to [facility]. Respiratory failure compensating with nasal cannula and Bipap. CHF, diastolic and responding to diuresis. Pneumonia. Improving ARF. AV repair on a nticoagulation (now held) Afib. GIB, GI is seeing post EGD. Asbestosis. Evaluation time is 30 minutes.
--- NOTE | 2019-09-20 10:52 | PROVIDER PROGRESS NOTE ---
Progress Note Dr. Jimenez Progress Note/Pulmonary and or critical care We appreciated progress of care, Complications, change in diagnosis, and instructions to patient under direct supervision of Dr. Jimenez. Subjective: We note the level of consciousness, bed (chair) position, family presence (if any), level of lethargy, feeling of symptoms, and changes from baseline condition/symptom. The patient is lying in bed with no acute distress noted. He is on a NC 2L and tolerates well. He states he is feeling better. He reports productive cough with thick white phlegm. He also has some chest tightness. He reports he had over 10 years of asbestos exposure. No tachypnea noted at this time. Objective: Vital Signs: We reviewed EMR current values for Pulse rate, Blood pressure, Pulse rate, respiratory rate and Pulse oximetry. Also noted other values and trends if pres ent (e.g. I/O, CVP). Vital Signs 09/19/19 11:02 09/19/19 11:35 09/19/19 12:00 Temperature 98.8 F Pulse Rate 61 63 Respiratory Rate 26 H 16 Blood Pressure 157/58 114/56 O2 Sat by Pulse Oximetry 98 98 09/19/19 12:03 09/19/19 12:20 09/19/19 12:21 Temperature Pulse Rate 78 67 Respiratory Rate 16 25 H Blood Pressure 114/56 164/43 151/54 O2 Sat by Pulse Oximetry 94 L 93 L 09/19/19 13:02 09/19/19 14:02 09/19/19 15:02 Temperature Pulse Rate 64 80 80 Respiratory Rate 26 H 21 28 H Blood Pressure 135/61 150/57 156/52 O2 Sat by Pulse Oximetry 94 L 97 96 09/19/19 16:00 09/19/19 16:02 09/19/19 16:15 Temperature 98.3 F Pulse Rate 69 69 Respiratory Rate 21 21 Blood Pressure 130/58 130/58 O2 Sat by Pulse Oximetry 99 99 98 09/19/19 17:02 09/19/19 18:02 09/19/19 19:02 Temperature Pulse Rate 74 70 70 Respiratory Rate 17 26 H 26 H Blood Pressure 140/51 151/50 149/66 O2 Sat by Pulse Oximetry 96 98 09/19/19 20:00 09/19/19 20:02 09/19/19 21:02 Temperature 97.8 F 97.8 F Pulse Rate 84 84 64 Respiratory Rate 22 22 31 H Blood Pressure 129/75 129/75 151/55 O2 Sat by Pulse Oximetry 97 97 96 09/19/19 21:40 09/19/19 22:02 09/19/19 23:02 Temperature Pulse Rate 64 72 78 Respiratory Rate 24 29 H 22 Blood Pressure 142/57 160/57 O2 Sat by Pulse Oximetry 96 98 98 09/20/19 00:00 09/20/19 01:47 09/20/19 04:00 Temperature 97.9 F 97.5 F L Pulse Rate 82 79 75 Respiratory Rate 12 19 Blood Pressure 146/52 150/52 O2 Sat by Pulse Oximetry 94 L 96 09/20/19 07:54 09/20/19 08:57 09/20/19 09:10 Temperature 98 F Pulse Rate 71 88 78 Respiratory Rate 18 20 Blood Pressure 161/56 O2 Sat by Pulse Oximetry 97 95 Intake & Output 09/19/19 09/20/19 09/20/19 19:59 07:59 19:59 Intake Total 1500 / 1860 360 / 1860 Output Total 100 / 160 60 / 160 Balance 1400 / 1700 300 / 1700 Intake: Intake, IVPB 50 / 50 Intake, TPN/PPN Amount 300 / 300 Intake, Oral Amount 1150 / 1510 360 / 1510 Output: Output, Urine Void Amount 100 / 100 Output, Urine Villanueva Amount 60 / 60 Other: Percent of Meal Consumed 50% Number of Incontinent Voids 1 Number of Bowel Movements 0 Physical Examination: General: Lying in bed with no acute distress noted. HEENT: Trachea midline. Mucosa pink and moist. Poor dentition. Chest: Even and unlabored. Symmetrical excursion. Auscultation reveals rhonchi on the right side which is cleared up by cough and some mild coarse breathing sounds bilaterally. CVS: Irregularly irregular with S1 and S2 noted. Abdomen: Soft. Protuberant. Nontender. Bowel sounds normoactive in all 4 quadrants. Extremities: BUE and BLE pitting edema 1-2+. No cyanosis. Dorsalis pedis diminished b/l. Neuro: A/Ox 3. Speech fluent. Follow commands. Weakness present. Labs and Radiology: Reviewed available labs and radiology values available at time of EMR review. Laboratory Results 09/19/19 09/19/19 09/19/19 11:53 16:46 20:29 WBC RBC Hgb Hct MCV MCH MCHC RDW Std Deviation Plt Count MPV Specimen Type Sample Site pH pCO2 pO2 HCO3 Base Excess Oxyhemoglobin ABG O2 Sat (Calculated) ABG O2 Saturation ABG Carboxyhemoglobin ABG Methemoglobin Wes Test A-a O2 Difference Total Hemoglobin Lactate Liter Flow Blood Gas Modality FiO2 % Sodium Potassium Chloride Carbon Dioxide Anion Gap BUN Creatinine Estimated GFR/1.73 m2 BUN/Creatinine Ratio Glucose POC Glucose 173 H 138 H 179 H Calculated Osmolality Calcium 09/20/19 09/20/19 09/20/19 00:18 04:09 04:40 WBC RBC Hgb Hct MCV MCH MCHC RDW Std Deviation Plt Count MPV Specimen Type ARTERIAL Sample Site R RADIAL pH 7.39 pCO2 55 H* pO2 66 HCO3 30.0 H Base Excess 6.7 H Oxyhemoglobin 91.7 L ABG O2 Sat (Calculated) 17.3 ABG O2 Saturation 95.1 ABG Carboxyhemoglobin 2.50 ABG Methemoglobin 1.1 Wes Test YES A-a O2 Difference 65.0 Total Hemoglobin 13.4 Lactate 1.90 Liter Flow 2.0 Blood Gas Modality CANNULA FiO2 % 28.0 Sodium Potassium Chloride Carbon Dioxide Anion Gap BUN Creatinine Estimated GFR/1.73 m2 BUN/Creatinine Ratio Glucose POC Glucose 140 H 113 H Calculated Osmolality Calcium 09/20/19 09/20/19 05:36 05:36 WBC 10.73 RBC 2.60 L Hgb 8.0 L Hct 26.2 L MCV 100.8 H MCH 30.8 MCHC 30.5 L RDW Std Deviation 17.5 H Plt Count 134 MPV 10.5 H Specimen Type Sample Site pH pCO2 pO2 HCO3 Base Excess Oxyhemoglobin ABG O2 Sat (Calculated) ABG O2 Saturation ABG Carboxyhemoglobin ABG Methemoglobin Wes Test A-a O2 Difference Total Hemoglobin Lactate Liter Flow Blood Gas Modality FiO2 % Sodium 144 Potassium 4.4 Chloride 105 Carbon Dioxide 32 Anion Gap 7 BUN 39 H Creatinine 1.1 Estimated GFR/1.73 m2 > 60 BUN/Creatinine Ratio 35 Glucose 119 H POC Glucose Calculated Osmolality [address] Jimenez evaluated and additional note below. Evaluation time in minutes: 33 minutes. Assessment: Acute hypoxemic hypercapnic respiratory failure. 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 CT on 09/18/19. Acute on chronic congestive heart failure. Pneumonia. Acute on chronic kidney disease. Improved. Atrial fibrillation. On Warfarin. GI bleed with reflux esophagitis and gastric ulcers. Dr. Vincent on board. EGD on 09/18/19. Benign adrenal myelolipoma on the left adrenal gland, measuring 5 cm. Plan: Continue current treatment and supportive care per admitting and other teams on the case. Antibiotics including azithromycin and ceftriaxone, bronchodilators, and diuresis. Mucomyst. Appropriate DVT and GI prophylaxis. Physical therapy. Encourage incentive spirometer, cough and deep breathing ro utinely. Input was appreciated from Admitting MD and other teams on the case. See additional notes by Dr. Jimenez.
--- NOTE | 2019-09-20 12:52 | PROGRESS NOTE ---
DATE: 09/20/2019 SUBJECTIVE: This morning, Mr. Verdugo refers to be doing well. No major shortness of breath and no chest pain. He said he has not had any bleeding either. OBJECTIVE: Vital signs: Blood pressure is 108/93, pulse of 79, respiration is 21, temperature is 98.2 degrees. General: Mr. Verdugo is a 74-year-old elderly gentleman. He is in bed, no distress. HEENT: Mucosa is pink and moist. Anicteric. Acyanotic. Neck: Supple. Chest: Air entry is bilaterally reduced. A few bilateral crackles. Cardiovascular: Regular rate and rhythm. No murmurs, no rubs, no gallops. Gastrointestinal: Abdomen is soft distended but nontender. Extremities: About 2+ pedal edema both in the lower and upper extremities. Central nervous system: Patient is awake, alert, oriented. No focal deficit. LABORATORY DATA: Chemistry is unremarkable with a normal kidney function test. CBC is also unremarkable except for mild macrocytic anemia. The patient's hemoglobin is up 8.0 this morning. IMAGING STUDIES: No new imaging studies. MEDICATIONS: Have all been reviewed. No changes. DIAGNOSTIC DATA: An echocardiogram which was done early on during the hospital course seems to suggest normal left ventricular systolic function. ASSESSMENT: 1. Acute hypoxemic with acute on chronic hypercarbic respiratory failure, improved. Patient is still on supplemental oxygen. Pulmonary Medicine is on board. 2. History of atrial fibrillation, currently rate controlled. 3. Gastrointestinal bleed. The patient is status post esophagogastroduodenoscopy which revealed nonbleeding gastric ulcers. Both aspirin and Coumadin have been withheld. The patient is on proton pump inhibitor. 4. 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 The patient has been notified. Pulmonary Medicine is on board. 5. Bronchopneumonia. Patient is on antimicrobial coverage. Today is day 9 on both ceftriaxone and azithromycin, tomorrow will be the last day. 6. Status post bioprosthetic aortic valve replacement. 7. Diabetes mellitus with presenting A1c of 8.0. Patient is on insulin regimen. 8. Status post massive transfusion. Patient got a total of 6 packed red blood cells and 2 fresh frozen plasma transfusion during the early course of the hospital stay. 9. Fluid overload, most likely a combination of over-hydration during the hospital course and possible diastolic heart failure. Patient is on diuretic therapy and he seems to be doing well. 10. Generalized weakness and deconditioning. Physical Therapy has been consulted and patient is pending possible rehab placement. cc: Jesús Rivera MD
--- NOTE | 2019-09-20 14:48 | GASTROENTEROLOGY PROGRESS NOTE ---
DATE: 09/20/2019 SUBJECTIVE: Mr. Verdugo is a 74-year-old, male, sitting at the side of the bed, Physical Therapy working with the patient. The patient denied having any nausea, vomiting, or abdominal pain. He c/o of not having any bowel movements today or yesterday. He has denied noticing any further bleeding episodes. The patient is on a diabetic diet, and he is able to tolerate his diet well. OBJECTIVE: Vital Signs: Temperature 98.2, pulse 79, respirations 21, blood pressure 108/93, oxygen saturation 98%. The patient is on 2 L nasal cannula. His weight is 239 pounds, BMI is 33.5 kg/m2. General: He is alert and oriented x3, and in no acute distress. HEENT: Pale conjunctivae. No icterus. PERRL. Neck: Supple. Lungs: Mild wheezing heard in the upper anterior lobes. Cardiovascular: Regular rate and rhythm. Abdomen: Obese, soft, nontender. Active bowel sounds heard in all 4 quadrants. Extremities: No clubbing, no cyanosis. Generalized edema in the lower extremities. Neurologic: Alert and oriented x3. LABORATORY DATA: WBC at 10.73, RBCs 2.60, hemoglobin is 8.0, hematocrit is 26.2, platelet count is 134,000. Sodium 144, potassium 4.4, chloride 105, carbon dioxide 32, anion gap 7, BUN 39, creatinine 1.1, glucose 119, calcium is 8.7. IMAGING: The patient's chest x-ray yesterday showed significant calcified pleural plaques indicating previous asbestos exposure, mild congestive heart failure, scattered infiltrates bilaterally are indeterminate, either pulmonary scarring, edema, or bronchopneumonia. EGD FINDINGS: EGD done on 09/18/2019 showed reflux esophagitis at GEJ and distal esophagus. Two ulcers ranging between 5 to 9 mm in the prepyloric region of the stomach and gastric antrum. Bile noted in the stomach. Duodenal inflammation. Duodenal mucosa showed no abnormalities. IMPRESSION AND PLAN: Acute blood loss anemia Melena - resolved Left lower lobe pneumonia - on antibiotics Rocephin and azithromycin Reflux esophagitis Gastric ulcers Duodenitis PLAN: Mr. Verdugo is a 74-year-old, male with a history of acute kidney injury and type 2 diabetes. Gastroenterology is following him for his GI bleed and anemia. The patient's hemoglobin and hematocrit today are 8.0 and 26.2. It has slightly trended up from yesterday. The patient's melena has been resolved. The patient has not complained of any more further bleeding episodes. He is on PPI's twice a day, and will continue it for 3 months. He is on Carafate 1 gram every 6 hours. Will continue it for 6 weeks. For his anemia, he is on iron tablets twice a day and multivitamin once daily, and we will continue it for 3 months. The patient will need a repeat EGD in 3 months. We will continue to monitor the patient's H & H and follow the plan of care per PCP. This plan was discussed with Dr. Cam. Please call us for any further questions or concerns. Dictated by STEW Huggins for Jose D Cam MD Physician Attestation I have seen and examined the patient. I have discussed and reviewed the note by Cha MATHIAS and agree with findings and plan as documented. In brief, Mr. Verdugo is a 74 year old woman with AFIB on coumadin and aspirin who presented with UGIB in setting of gastric ulcers, duodenitis, and esophagitis seen on EGD. His hgb is stable. He is tolerating diet. He is on PPI and carafate. Stop carafate and continue PPI BID orally for 3 months. Repeat EGD in at that time to check for ulcer healing. Will sign off. Please call with questions. MTDD
[2019-09-21] MEDS: ZITHROMAX 500 MG/NS 500 MG/250 ML IVPB IV SCH (01:18)
[2019-09-21] MEDS: HUMALOG SUBQ SCH ×6 (01:19→21:13)
[2019-09-21] MEDS: CARAFATE LIQUID PO SCH (02:15)
[2019-09-21] MEDS: DUONEB (A & A) INH SCH ×3 (03:33→23:25)
[2019-09-21 04:51] LABS: ALLEN TEST YES; BE 8.6 mmoll (-3.0-3.0); BLOOD TYPE ARTERIAL; HCO3-(ACT) 31.6 mmoll (20.0-26.0); METHB 0.7 % (0.0-1.5); O2(CT) 11.4 mL/dL (15.0-23.0); O2HB 95.4 % (95.0-99.0); PO2(98.6) 86 mmHg (60-100); SAMPLE BLOOD; SAO2 98.9 % (95.0-100.0); THB 8.4 g/dL (11.5-17.4); pH(98.6) 7.43 (7.35-7.45)
[2019-09-21 05:03] LABS: MODALITY CANNULA; PCO2(98.6) 51 mmHg (35-45)
[2019-09-21] MEDS: PROTONIX IV SCH (05:08)
[2019-09-21] MEDS: LANTUS INSULIN SUBQ SCH (09:06)
[2019-09-21] MEDS: LANOXIN PO SCH (09:07)
[2019-09-21] MEDS: CARDIZEM CD PO SCH (09:07)
[2019-09-21] MEDS: PROTONIX PO SCH ×2 (09:07→21:12)
[2019-09-21] MEDS: ROCEPHIN 1 GM in NS 50 ML IV SCH (09:07)
[2019-09-21] MEDS: LASIX IV SCH (09:07)
[2019-09-21] MEDS: FLOMAX PO SCH ×2 (09:08→21:13)
[2019-09-21] MEDS: KLOR-CON PO SCH (09:08)
[2019-09-21] MEDS: ICAR-C PO SCH ×2 (09:08→21:13)
[2019-09-21] MEDS: MUCOMYST 20% INH SCH ×2 (09:33→23:25)
--- NOTE | 2019-09-21 11:22 | PROVIDER PROGRESS NOTE ---
Progress Note Pulmonary additional note: I have seen and examined the case, reviewed the EMR, labs, latest images and other medical teams notes. Also reviewed the CODING ASSISTANT notes and signed necessary form(s). I have noted changes in condition from yesterday. Please see also signed progress sheet. I reviewed the medications in summary list. I reviewed the orders of the patient. I checked Ventilator settings and titrated (Bipap/High flow Cannula/Cannula/Ventimask) to patient needs per clinical protocols and watched the patient responses. I titrated vasopressors to patients needs per clinical protocols and monitored patient responses. I titrated sedation to patients needs per clinical protocols and monitored patient responses. Since yesterday, Prognosis: Guarded for now. I reviewed latest notes from . I discussed with family at the bedside the condition and answered there questions. I did the evaluation exam and management on the other sheet and the BEAM PRESS OPERATOR did the scribing only. I asked staff antisubmarine officer about condition changes and if they have any needs in regard to today conditions. I spent 32 minutes in this process.
--- NOTE | 2019-09-21 11:27 | PROVIDER PROGRESS NOTE ---
Progress Note Pulmonary additional note: I have seen and examined the case, reviewed the EMR, labs, latest images and other medical teams notes. Also reviewed the MANUFACTURING ASSOCIATE notes and signed necessary form(s). I have noted changes in condition from yesterday. Please see also signed progress sheet. I reviewed the medications in summary list. I reviewed the orders of the patient. I checked O2 settings and titrated the nasal cannula to patient needs per clinical protocols and watched the patient responses especially given that he is resolving from acute respiratory failure and CHF post massive transfusion for GIB. Since yesterday, he tolerating NC and was hemodynamically stable. Prognosis: Guarded for now. I reviewed latest notes from Dr. Rivera and Dr. Bragg (GIB post massive transfusion) I did the evaluation exam and management on the other sheet and the BRANCH SERVICE LEADER did the scribing only. I spent 35 minutes in this process.
[2019-09-21] MEDS: ELDERTONIC PO SCH (12:40)
--- NOTE | 2019-09-21 12:47 | PROVIDER PROGRESS NOTE ---
Progress Note Dr. Jimenez Progress Note/Pulmonary and or critical care We appreciated progress of care, Complications, change in diagnosis, and instructions to patient under direct supervision of Dr. Jimenez. Subjective: We note the level of consciousness, bed (chair) position, family presence (if any), level of lethargy, feeling of symptoms, and changes from baseline condition/symptom. The patient is sitting on the bedside chair with no acute distress noted. He is on a NC 2L and tolerates well. He states he is ready to be discharged. He still has BLE and BUE swelling with slow improving. He states he usually drinks a lot with no trouble urination. He denies any pain. Family at the bedside. Objective: Vital Signs: We reviewed EMR current values for Pulse rate, Blood pressure, Pulse rate, respiratory rate and Pulse oximetry. Also noted other values and trends if present (e.g. I/O, CVP). Vital Signs 09/20/19 15:14 09/20/19 15:45 09/20/19 19:16 Temperature 98 F 98.2 F Pulse Rate 94 H 71 68 Respiratory Rate 18 15 18 Blood Pressure 127/73 171/64 O2 Sat by Pulse Oximetry 96 98 98 09/20/19 21:10 09/21/19 00:00 09/21/19 04:00 Temperature 98.0 F 98.1 F Pulse Rate 69 70 68 Respiratory Rate 18 18 17 Blood Pressure 126/37 141/33 O2 Sat by Pulse Oximetry 96 98 94 L 09/21/19 08:00 09/21/19 09:07 09/21/19 09:34 Temperature 97.7 F Pulse Rate 79 72 72 Respiratory Rate 16 18 Blood Pressure 142/55 O2 Sat by Pulse Oximetry 98 96 09/21/19 11:56 Temperature 98.3 F Pulse Rate 103 H Respiratory Rate 17 Blood Pressure 129/47 O2 Sat by Pulse Oximetry 97 Intake & Output 09/20/19 09/21/19 09/21/19 19:59 07:59 19:59 Intake Total 40 / 40 Output Total 700 / 700 Balance -700 / -660 40 / -660 Intake: Intake, IV Amount 40 / 40 Output: Output, Urine Void Amount 700 / 700 Other: Percent of Meal Consumed 100% Number of Continent Voids Not 1 1 Measured Number of Bowel Movements 1 Physical Examination: General: Lying in bed with no acute distress noted. HEENT: Trachea midline. Mucosa pink and moist. Poor dentition. Chest: Even and unlabored. Symmetrical excursion. Auscultation reveals mild inspiratory crackles bilaterally. CVS: Irregularly irregular with S1 and S2 noted. Abdomen: Soft. Protuberant. Nontender. Bowel sounds normoactive in all 4 quadrants. Extremities: BUE and BLE pitting edema 1-2+. No cyanosis. Dorsalis pedis diminished b/l. Neuro: A/Ox 3. Speech fluent. Follow commands. Weakness present. Labs and Radiology: Reviewed available labs and radiology values available at time of EMR review. Laboratory Results 09/20/19 09/20/19 09/20/19 11:41 15:49 19:19 Specimen Type Sample Site pH pCO2 pO2 HCO3 Base Excess Oxyhemoglobin ABG O2 Sat (Calculated) ABG O2 Saturation ABG Carboxyhemoglobin ABG Methemoglobin Wes Test A-a O2 Difference Total Hemoglobin Lactate Liter Flow Blood Gas Modality FiO2 % POC Glucose 124 H 149 H 164 H 09/21/19 09/21/19 09/21/19 00:50 04:41 04:59 Specimen Type ARTERIAL Sample Site R RADIAL pH 7.43 pCO2 51 H* pO2 86 HCO3 31.6 H Base Excess 8.6 H Oxyhemoglobin 95.4 ABG O2 Sat (Calculated) 11.4 L ABG O2 Saturation 98.9 ABG Carboxyhemoglobin 2.80 H ABG Methemoglobin 0.7 Wes Test YES A-a O2 Difference 50.0 Total Hemoglobin 8.4 L Lactate 0.70 Liter Flow 2.0 Blood Gas Modality CANNULA FiO2 % 28.0 POC Glucose 112 H 124 H 09/21/19 09/21/19 08:10 12:00 Specimen Type Sample Site pH pCO2 pO2 HCO3 Base Excess Oxyhemoglobin ABG O2 Sat (Calculated) ABG O2 Saturation ABG Carboxyhemoglobin ABG Methemoglobin Wes Test A-a O2 Difference Total Hemoglobin Lactate Liter Flow Blood Gas Modality FiO2 % POC Glucose [address] Jimenez evaluated and additional note below. Evaluation time in minutes: 32 minutes. Assessment: Acute hypoxemic hypercapnic respiratory failure. 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 CT on 09/18/19. Acute on chronic congestive heart failure. Pneumonia. Acute on chronic kidney disease. Improved. Atrial fibrillation. On Warfarin. GI bleed with reflux esophagitis and gastric ulcers. Dr. Vincent on board. EGD on 09/18/19. Benign adrenal myelolipoma on the left adrenal gland, measuring 5 cm. Plan: Continue current treatment and supportive care per admitting and other teams on the case. Antibiotics including azithromycin and ceftriaxone, bronchodilators, and diuresis. Mucomyst. Appropriate DVT and GI prophylaxis. Physical therapy. Encourage incentive spirometer, cough and deep breathing routinely. Discharge planning per Admitting MD. Input was appreciated from Admitting MD and other teams on the case. See additional notes by Dr. Jimenez. Dr. Jimenez did the evaluation, examination and management. WIG MAKER did the scrib ing/dictation for Dr. Jimenez according to his directions.
--- NOTE | 2019-09-21 13:22 | DISCHARGE SUMMARY ---
ADMISSION DATE: 09/10/2019 DISCHARGE DATE: 09/21/2019 DISPOSITION: [facility] Rehab. FOLLOWUP: 1. Dr. Vincent. 2. Dr. Jenkins. 3. Dr. Jimenez. CONSULTATIONS DURING THIS ADMISSION: 1. Pulmonary was consulted. The patient was seen by Dr. Jimenez. 2. GI was consulted. The patient was seen by Dr. Vincent and Dr. Cam. INVASIVE PROCEDURES DONE DURING THIS ADMISSION: EGD was done by Dr. Berger on 09/18/2019, which revealed: 1. Reflux esophagitis. 2. Prepyloric gastric ulcers. ADMISSION DIAGNOSES: 1. Probably left lower lobe pneumonia. 2. Acute congestive heart failure. 3. Atrial fibrillation with rapid ventricular response. 4. Respiratory failure. 5. Probable chronic obstructive pulmonary disease. 6. Hypertensive heart and kidney disease. 7. Chronic kidney disease stage 3. DISCHARGE DIAGNOSES: 1. Acute hypoxemic respiratory failure with acute on chronic hypercarbic respiratory failure. The patient improved with bilevel positive airway pressure therapy, which progressively got weaned off, and the patient is currently on supplemental nasal cannula oxygenation. 2. Chronic atrial fibrillation with rapid ventricular response on presentation, improved. 3. Anemia of acute gastrointestinal bleed.Patient was on Coumadin and aspirin. The patient's hemoglobin went down to 6.5. He is status post 6 packed red blood cells transfusion and 2 fresh frozen plasma transfusion. He subsequently underwent esophagogastroduodenoscopy, where 2 ulcers were found in the prepyloric region. Both antithrombotics are on hold. 4. Suspected chronic obstructive pulmonary disease. The patient has been advised to follow up with Pulmonary Medicine for pulmonary function tests and adequate management. 5. Bronchopneumonia. The patient is on antimicrobial therapy. 6. Status post bioprosthetic aortic valve replacement. 7. Diabetes mellitus with presenting A1c of 8.0. The patient was on insulin regimen during the hospital course. He has been transitioned back to his medication (Onglyza 5 mg daily). Metformin has been added. 8. Fluid overload secondary to diastolic heart failure from tachyarrhythmias. 9. Generalized weakness and deconditioning. Physical Therapy was on board. 10. Status post massive transfusion as indicated above. 11. Suspected obstructive sleep apnea. The patient will need to follow up with sleep studies. 12. Right ventricle dilated on echocardiogram, with mildly elevated pulmonary artery systolic pressure, all concerning for probably longstanding lung pathology compromising the right side, associated with fluid overload, which will all be concerning for cor pulmonale. 13. Calcified pleural plaques, indicative of previous asbestosis exposure. The patient will follow up with Pulmonary Medicine. DISCHARGE MEDICATIONS: 1. Triamterene/hydrochlorothiazide 1 tablet daily. 2. Allopurinol 300 mg p.o. daily. 3. Onglyza 5 mg p.o. daily. 4. Diltiazem 240 p.o. daily. 5. Digoxin 250 mcg p.o. daily. 6. Ramipril 10 mg p.o. daily. 7. Coumadin 5 mg p.o. at bedtime, to be started on 09/26/2019. 8. Iron supplement. 9. Pantoprazole 40 mg b.i.d. 10. Cefdinir 300 mg b.i.d. for 5 additional days. 11. Multivitamin. 12. Metformin 850 p.o. b.i.d. 13. Furosemide 40 mg p.o. b.i.d. PRESENTING COMPLAINT: A 3-day history of dry cough, chest tightness, increased shortness of breath. HISTORY OF PRESENTING COMPLAINT: Mr. Verdugo is a 74-year-old, gentleman with multiple comorbidities, including diabetes, hypertension, long-standing chronic dyspnea on exertion, who came to the emergency room because of worsening shortness of breath, cough. The patient did not complain of any fever or chills. Upon presentation to the emergency room via EMS, he was found to be in atrial fibrillation with RVR with a rate of 140. He was given 25 mg of Cardizem, and his heart rate got better. He was put on a BiPAP, and was initially admitted to the Medical ICU. HOSPITAL COURSE: Mr. Verdugo was admitted to the medical ICU, was initially started on BiPAP. He progressively got better from a respiratory standpoint with antibiotics, nebulization, diuretic therapy. However, his hemoglobin was found to drop to 6.5. GI was consulted. A decision was made to do an EGD, which was successfully done by Dr. Vincent. Gastric ulcers were found, and some reflux esophagitis. PPI was recommended. During the hospital course, Mr. Verdugo continues to improve. He continued to be on a positive balance, but he was started on diuretic therapy. He was transitioned from BiPAP to nasal cannula, which he was tolerating well. A CT scan of the chest, which was done, did show significant calcified plaques, indicating previous asbestosis exposure. Mr. Verdugo was evaluated by Pulmonary Medicine, and he will follow up with them accordingly. Throughout the hospital cause, Mr. Verdugo's other comorbidities were all addressed. His glucose got better. Blood pressure was under control. He has been transitioned from BiPAP to just nasal cannula, and he has been doing well with physical therapy. Up until yesterday, Mr. Verdugo was able to do 40 feet with minimum assist. We think he is now clinically stable to be discharged to rehab to continue with his physical congregational. All the discharge instructions were discussed with him. The was at the bedside at the time of this encounter. His current vitals show blood pressure is 142/55, pulse is 79, respirations 16, temperature is 97.2 degrees. The patient is on 2 L of nasal cannula, and he is saturating 96% today. There is not any laboratory data for today, nor imaging studies. He is going to continue with the medications that have been reconciled above, and he will follow up accordingly with his primary care, as well as all the subspecialties that have been involved with his care once he gets discharged from rehab. TIME SPENT: Time spent for discharge is 38 minutes. cc: MD Gris Ross MD Manish Arora, MD Mamoun I. Najjar, MD MTDD
--- NOTE | 2019-09-21 19:19 | Diag Imaging Result Doc PS360 ---
EXAM: CT HEAD W/O CONTRAST HISTORY: change in mental status/confusion TECHNIQUE: CT head without contrast COMPARISON: None. FINDINGS: No parenchymal hemorrhage. No epidural or subdural hematoma. No subarachnoid hemorrhage. There is atrophy with chronic microvascular ischemic changes. No mass identified on this noncontrasted exam. No hydrocephalus. Air-fluid levels in each maxillary sinus. IMPRESSION: 1.No hemorrhage 2.Atrophy with chronic microvascular ischemic changes 3.Maxillary sinusitis This exam was performed using automated exposure control, adjustment of mA or kV according to patient size, and/or use of iterative reconstruction technique. Electronically signed by Shravan Falcon 09/21/2019 7:16 PM
[2019-09-21 20:38] LABS: ALB/GLOB RATIO 0.8; TOTAL BILIRUBIN 0.3 mg/dL (0.20-1.00)
[2019-09-21 20:43] LABS: BASO# 0.04 X1000 (0.0-0.2); BASO% 0.4 % (0.0-0.8); EOS# 0.45 X1000 (0.0-0.7); EOS% 4.3 % (0.0-10.0); HEMATOCRIT 26.7 % (42.0-52.0); HEMOGLOBIN 8.1 g/dL (14.0-18.0); IMM GRAN# 0.16 X1000 (0.0-0.04); IMM GRAN% 1.5 % (0.0-0.5); INR 1.16; LYMPH% 13.5 % (20.5-51.1); MCH 29.9 PG (27-31); MCHC 30.3 g/dL (33-37); MCV 98.5 FL (81-99); MONO# 0.82 X1000 (0.11-0.59); MONO% 7.9 % (1.7-9.3); MPV 11.6 FL (7.4-10.4); NEUT# 7.49 X1000 (1.4-6.5); NEUT% 72.4 % (42.2-75.2); PLT 160 X1000 (130-400); RBC 2.71 XMIL (4.7-6.1); RDW 17.5 % (11.5-14.5); WBC 10.36 X1000 (4.8-10.8)
[2019-09-21 20:51] LABS: ALBUMIN 2.6 g/dL (3.5-5.0); CALCIUM 8.7 mg/dL (8.8-10.2); CREATININE 1.3 mg/dL (0.7-1.2); MAGNESIUM 1.7 mg/dL (1.5-2.7); POTASSIUM 4.5 mmol/L (3.5-5.1); TOTAL PROTEIN 5.8 g/dL (6.3-8.3)
[2019-09-21 20:54] LABS: ALLEN TEST YES; BE 7.9 mmoll (-3.0-3.0); BLOOD TYPE ARTERIAL; HCO3-(ACT) 31.1 mmoll (20.0-26.0); METHB 0.9 % (0.0-1.5); O2(CT) 11.5 mL/dL (15.0-23.0); O2HB 95.3 % (95.0-99.0); PCO2(98.6) 50 mmHg (35-45); PO2(98.6) 78 mmHg (60-100); SAMPLE BLOOD; SAO2 98.1 % (95.0-100.0); THB 8.5 g/dL (11.5-17.4); pH(98.6) 7.43 (7.35-7.45)
[2019-09-21 20:56] LABS: MODALITY CANNULA
[2019-09-21 21:14] LABS: URINE SOURCE CLEAN CATCH
[2019-09-21 21:17] LABS: BILIRUBIN URINE NEGATIVE (NEGATIVE); BLOOD URINE NEGATIVE (NEGATIVE); COLOR YELLOW; GLUCOSE URINE NEGATIVE (NEGATIVE); KETONE URINE NEGATIVE (NEGATIVE); LEUKOCYTES URINE SMALL (NEGATIVE); NITRITE URINE NEGATIVE (NEGATIVE); PH URINE 5.5; PROTEIN URINE NEGATIVE (NEGATIVE); SP GRAVITY URINE 1.017; TURBIDITY URINE CLEAR (CLEAR); UROBILINOGEN URINE NORMAL (NORMAL)
[2019-09-21 21:19] LABS: UR EPITHELIAL CELLS <10 /HPF (<10); URINE BACTERIA NEGATIVE /HPF; URINE RBC <10 /HPF (<10); URINE WBC <10 /HPF (<10)
[2019-09-21 21:25] LABS: URINE YEAST PRESENT
--- NOTE | 2019-09-21 21:41 | EKG Report ---
Test Performed on : 09/21/2019 8:37:08 PM Test Reason : AMS Blood Pressure : / mmHG Vent. Rate : 054 BPM Atrial Rate : 053 BPM P-R Int : 000 ms QRS Dur : 094 ms QT Int : 552 ms P-R-T Axes : 000 034 -25 degrees QTc Int : 523 ms Atrial fibrillation. with slow ventricular response. Septal infarct (cited on or before 22-OCT-2017) Prolonged QT Abnormal ECG When compared with ECG of 10-SEP-2019 22:42, (Unconfirmed) Vent. rate has decreased BY 64 BPM Questionable change in initial forces of Septal leads Nonspecific T wave abnormality now evident in Inferior leads T wave inversion no longer evident in Lateral leads Confirmed by Marino LU, Karri Howard ([id number]) on 09/25/2019 5:53:41 PM
[2019-09-21] MEDS ORDERED: ALBUMIN 25% IV ONE (22:18)
--- NOTE | 2019-09-21 22:24 | PROGRESS NOTE ---
DATE: 09/21/2019 SUBJECTIVE: Around 6:30 p.m., a code brain was called on Mr. Verdugo. When I went to evaluate him, the ER staff was already there. They were doing the NIHSS score for stroke, which seems to have been unremarkable. Per my assessment, Mr. Verdugo was awake. He was oriented to person and to place by the time I arrived. He did not have any motor deficit. Sensation was completely unremarkable. I did not explore his visual defects, and I did not explore his gait. However, his speech was very clear and articulate, and he did not seem to have any cranial nerve abnormality. At the time, his blood glucose was 120. OBJECTIVE: vital signs: Blood pressure was 130/34, pulse 65, respiration 17, temperature 98.1 degrees. ASSESSMENT/PLAN: An acute transient global amnesia, which recovered spontaneously and immediately. A CT scan has been ordered and we will follow up on that. If that is negative, we will do an MRI to complete the stroke protocol. Mr. Verdugo was discharged early on today. We will withhold the discharge and finish the stroke workup. cc: Jesús Rivera MD MTDIvanna
[2019-09-22] MEDS: HUMALOG SUBQ SCH ×4 (01:00→11:55)
[2019-09-22] MEDS ORDERED: BENADRYL PO ONE (01:07)
[2019-09-22] MEDS: ZITHROMAX 500 MG/NS 500 MG/250 ML IVPB IV SCH (01:22)
[2019-09-22] MEDS: DUONEB (A & A) INH SCH ×2 (03:30→09:56)
[2019-09-22 03:34] LABS: ALLEN TEST YES; BE 6.5 mmoll (-3.0-3.0); BLOOD TYPE ARTERIAL; HCO3-(ACT) 29.9 mmoll (20.0-26.0); METHB 1.1 % (0.0-1.5); O2(CT) 17.4 mL/dL (15.0-23.0); PO2(98.6) 71 mmHg (60-100); SAMPLE BLOOD; SAO2 96.3 % (95.0-100.0); THB 13.3 g/dL (11.5-17.4)
[2019-09-22 04:03] LABS: MODALITY CANNULA; PCO2(98.6) 53 mmHg (35-45)
[2019-09-22] MEDS ORDERED: SODIUM CHLORIDE 0.9% 10 ML ONE (07:10)
[2019-09-22] MEDS: PROTONIX PO SCH (08:38)
[2019-09-22] MEDS: FLOMAX PO SCH (08:38)
[2019-09-22] MEDS: KLOR-CON PO SCH (08:38)
[2019-09-22] MEDS: CARDIZEM CD PO SCH (08:38)
[2019-09-22] MEDS: ICAR-C PO SCH (08:38)
[2019-09-22] MEDS: LANOXIN PO SCH (08:39)
[2019-09-22] MEDS: ROCEPHIN 1 GM in NS 50 ML IV SCH (08:39)
[2019-09-22] MEDS: LANTUS INSULIN SUBQ SCH (08:40)
[2019-09-22] MEDS: LASIX IV SCH (08:40)
[2019-09-22] MEDS: ELDERTONIC PO SCH (08:49)
[2019-09-22] MEDS ORDERED: ALBUMIN 25% IV SCH (09:00)
[2019-09-22] MEDS: MUCOMYST 20% INH SCH (09:56)
--- NOTE | 2019-09-22 10:29 | Diag Imaging Result Doc PS360 ---
MRI BRAIN W/O CONTRAST - 09/22/2019 INDICATION: stroke COMPARISON: Head CT 09/21/2019 FINDINGS: There is no area of restricted diffusion. There is overall mild diffuse cerebral atrophy. There are several small nonspecific cerebral white matter hyperintensities compatible with gliosis, most likely chronic microvascular ischemia. No intracranial mass or hemorrhage. There is fluid in both maxillary sinuses compatible with bilateral maxillary sinusitis. IMPRESSION: No acute intracranial process. Electronically signed by Quincy Villa 09/22/2019 10:27 AM
[2019-09-22 11:56] VITALS: BP 145/40
--- NOTE | 2019-09-22 16:34 | PROGRESS NOTE ---
DATE: 09/22/2019 SUBJECTIVE: This morning, Mr. Verdugo refers to be doing a lot better. He has not had any more episodes of forgetfulness or being confused. He still complains of some swelling in the lower extremities. Mr. Verdugo Was given an infusion of albumin to help with his fluid management. Unfortunately, he started having an allergic reaction with the albumin infusion. This was discontinued yesterday. OBJECTIVE: Vital Signs: Blood pressure is 145/40, pulse of 62, respirations 20, temperature is 98 degrees. The patient was saturating 95% on 2 L. General: Mr. Verdugo is a 74-year-old morbidly obese, gentleman. He was sitting up in a chair. The was the one in the hospital bed. He did not seem to be in any distress. HEENT: Mucosa was pink and moist. Anicteric. Acyanotic. Neck: Supple. Chest: Good air entry bilateral. A few crackles in the posterior lung lin. Cardiovascular: Irregularly irregular but rate controlled. There was no appreciable murmur. Gastrointestinal: Abdomen distended but nontender bowel sounds present. Extremities: About 2 to 3+ pedal edema. Distal pulses present. 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 No focal deficit. INTAKE AND OUTPUT: Urine output is documented to be 700. He is currently positive balance of over 22,000. IMAGING: A CT scan of the head which was done yesterday showed no hemorrhage and atrophy with chronic microvascular changes. An MRI of the head showed no acute intracranial process. LABORATORY DATA: Patient's glucose this morning is 156. HOME MEDICATIONS: Have all been reviewed and no changes. ASSESSMENT: 1. Acute hypoxemic with acute on chronic hypercarbic respiratory failure. This is improved. 2. Chronic atrial fibrillation, currently rate controlled. 3. Upper gastrointestinal bleed. The patient is status post esophagogastroduodenoscopy which revealed nonbleeding gastric ulcers. The patient was on aspirin and Coumadin. Both medications have been withheld and he is on Protonix. 4. Calcified pleural plaques indicative of previous asbestosis exposure. The patient is aware and he will continue followup with Pulmonary Medicine. 5. Bronchopneumonia. The patient is on ceftriaxone and azithromycin. Today is day 10. He has been switched to oral cefdinir to complete a total of 14 days. 6. Status post bioprosthetic aortic valve replacement noted. 7. Diabetes mellitus with presenting A1c of 8.0. Patient is on insulin regimen. 8. Status post massive transfusion during the hospital course. The patient got 6 units of packed red blood cells, 2 fresh frozen plasma. 9. Fluid overload. The patient is more than 20,000 fluid overload per documentation. However, his respiratory status seems to be well compensated. However, he is remarkably edematous. He is hypoalbuminemic. Unfortunately, he had allergy to albumin infusion, so he is only getting Lasix. 10. Acute kidney injury, improved during the hospital course. The patient will need to continue monitoring this on outpatient. 11. Acute onset of global encephalopathy associated with transient amnesia. The patient recovered memory immediately. A follow-up CT scan last night was unremarkable. An MRI this morning is completely normal. In general, I think Mr. Verdugo is stable. 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 Please refer to the details of the discharge summary that was dictated yesterday in the chart. cc: Jesús Rivera MD
== END 2019-09-22 12:40 | DRG 291 ==
LOC: SUPCPDRO → ED 22:36 → ICU 09-11 01:34 → SUATTDRO 09-11 01:34 → 2N 09-19 23:59
PROVIDERS: ATTEND Internal Medicine